=== PATIENT | female | born 1955 | race Caucasian/White ===

== ENCOUNTER 2022-03-24 11:19 | Inpatient (IN) | payer BC, OTHER ==
--- OUTSIDE RECORDS SUMMARY | 2022-03-24 11:22 | XMS REPORT | Continuity of Care Document ---
:1955 Author Organization [facility] t Address [address] [place] [address] Care Team Providers Name Role Phone Angelia Quiroz MD Primary Care Physician ANGELIA QUIROZ Attending Clinician Unavailable LUCHO ANGEL Attending Clinician Unavailable [id number] Attending Clinician Unavailable Angelia Quiroz MD Attending Clinician Payers Payer Name Policy Type Policy Number Effective Date Expiration Date S tomasz TRS BLUE ESSENTIALS 9 [id number] 2021 CAPITATED PRIM PLUS 00:00:00 BC[employer]-ESSENTIALS 2 [id number] 2021 00:00:00 Problems Condition Condition Condition Status Onset Resolution Last Treating Co mments Source Name Details Category Date Date Treatment Clinician Date No known No known Disease Starse sandy active active Seybold problems problems Allergies, Adverse Reactions, Alerts This patient has no known allergies or adverse reactions. Social History Social Habit Start Date Stop Date Quantity Comments Source Exposure to Not sure Roxanne vallejo SARS-CoV-2 (event) Tobacco use and 2021-02-25 2021-02-25 Smokeless tobacco Ramiro Joy exposure 00:00:00 00:00:00 non-user Sex [birth year] Roxanne fowler 00:00:00 00:00:00 Smoking Status Start Date Stop Date Source Never smoked tobacco Roxanne Jenkins old Medications Ordered Filled Start Stop Current Ordering Indication Dosage Frequency Signature Comments Components Source Medication Medication Date Date Medication? Clinician (SIG) Name Name Losartan Yes [id number] 25mg Take 1 Star y Potassium 2-01 tablet (25 Seyb old 25 MG oral 00:00: mg total) Tablet 00 by mouth daily Meloxicam Yes [id number] 7.5mg Take 1 Roxanne 7.5 MG oral 2 tablet Seybol d Tablet 00:00: (7.5 mg 00 total) by mouth daily Lisinopril 2020-08 40mg Take 1 Orquidea ey 40 MG oral 09-23 tablet (40 Se ybold Tablet 00:00: 00:00 mg total) 00 :00 by mouth daily Nitrofurant Yes [id number] 100mg Take 1 Roxanne oin Monohyd 7-15 capsule Seybo ld Macro 100 00:00: (100 mg MG oral 00 total) by Capsule mouth 2 times daily Vital Signs Vital Name Observation Time Observation Value Comments Source Systolic blood pressure 2021-09-15 16:46:00 119 mm[Hg] Roxanne Joy Diastolic blood 2021-09-15 16:46:00 74 mm[Hg] Estefanía Jenkinsphilip pressure Heart rate 2021-09-15 16:46:00 113 /min Roxanne birch Body temperature 2021-09-15 16:46:00 37.11 Jessi Orquidea niki Laureanoybold Respiratory rate 2021-09-15 16:46:00 17 /min Orquidea prince Seybold Body height 2021-09-15 16:46:00 152.4 cm Roxanne birch Body weight 2021-09-15 16:46:00 47.628 kg Roxanne birch BMI 2021-09-15 16:46:00 20.51 kg/m2 Roxanne birch Procedures This patient has no known procedures. Encounters Start End Encounter Admission Attending Care Care Encounter Source Date/Time Date/Time Type Type Clinicians Facility Department ID 2021-10-22 2021-10-22 Outpatient ROXANNE QUIROZ [id number] Roxanne 00:00:00 00:00:00 ANGELIA vallejo 2021-10-08 2021-10-08 Outpatient ROXANNE QUIROZ [id number] Roxanne 00:00:00 00:00:00 ANGELIA Seybol d 2021-10-08 2021-10-08 Outpatient ROXANNE ART [id number] Roxanne 00:00:00 00:00:00 Seybol d 2021-10-07 2021-10-07 Outpatient ROXANNE QUIROZ [id number] Roxanne 00:00:00 00:00:00 ANGELIA Seybol d 2021-10-06 2021-10-06 Outpatient ROXANNE QUIROZ [id number] Roxanne 00:00:00 00:00:00 ANGELIA Seybol d 2021-10-05 2021-10-05 Outpatient ROXANNE QUIROZ [id number] [place]anne 00:00:00 00:00:00 ANGELIA Seybol d 2021-10-02 2021-10-02 Outpatient ROXANNE QUIROZ [id number] Roxanne 00:00:00 00:00:00 ANGELIA Seybol d 2021-10-02 2021-10-02 Outpatient ROXANNE ART [id number] Roxanne 00:00:00 00:00:00 Seybol d 2021-09-24 2021-09-24 Outpatient ROXANNE ANGEL [id number] Roxanne 09:30:00 09:30:00 SHAJUAN Seybol d 2021-09-24 2021-09-24 Outpatient ROXANNE QUIROZ [id number] [place]anne 00:00:00 00:00:00 ANGELIA Seybol d 2021-09-23 2021-09-23 Outpatient ROXANNE QUIROZ [id number] Roxanne 00:00:00 00:00:00 ANGELIA Seybol d 2021-09-23 2021-09-23 Outpatient ROXANNE QUIROZ [id number] Roxanne 00:00:00 00:00:00 ANGELIA Seybol d 2021-09-22 2021-09-22 Outpatient ROXANNE QUIROZ [id number] Roxanne 00:00:00 00:00:00 ANGELIA Seybol d 2021-09-22 2021-09-22 Outpatient ROXANNE QUIROZ [id number] R[place]anne 00:00:00 00:00:00 ANGELIA Seybol d 2021-09-21 2021-09-21 Outpatient ROXANNE QUIROZ [id number] Roxanne 00:00:00 00:00:00 ANGELIA Seybol d 2021-09-18 2021-09-18 Outpatient ROXANNE QUIROZ [id number] Roxanne 00:00:00 00:00:00 ANGELIA Seybol d 2021-09-18 2021-09-18 Outpatient ROXANNE QUIROZ [id number] Roxanne 00:00:00 00:00:00 ANGELIA Seybol d 2021-09-17 2021-09-17 Outpatient ROXANNE QUIROZ [id number] [place]oxanne 00:00:00 00:00:00 ANGELIA Seybol d 2021-09-16 2021-09-16 Outpatient ROXANNE QUIROZ [id number] Roxanne 00:00:00 00:00:00 ANGELIA Seybol d 2021-09-16 2021-09-16 Outpatient ROXANNE QUIROZ [id number] Roxanne 00:00:00 00:00:00 ANGELIA Seybol d 2021-09-15 2021-09-15 Outpatient LAB90 ROXANNE ART [id number] Roxanne 11:45:00 11:45:00 Seybol d 2021-09-15 2021-09-15 Office Ed Quiroz [id number] Roxanne 11:00:00 11:30:00 Visit Angelia Owens [id number] Se smileyphilip Head [id number] 2021-07-23 2021-07-23 Outpatient ROXANNE QUIROZ [id number] Roxanne 00:00:00 00:00:00 ANGELIA Seybol d 2021-02-27 2021-02-27 Outpatient ROXANNE QUIROZ [id number] Roxanne 00:00:00 00:00:00 ANGELIA Seybol d 2021-02-25 2021-02-25 Outpatient LAB90 ROXANNE ART [id number] Roxanne 15:00:00 15:00:00 Kehinde vallejo 2021-02-25 2021-02-25 Outpatient ROXANNE QUIROZ [id number] Roxanne 13:30:00 13:30:00 ANGELIA vallejo Results This patient has no known results.
[2022-03-24 11:59] LABS: Absolute Lymphocytes (CBC) 0.5 K/uL (0.7-4.9); Hematocrit 48.4 % (36.0-45.0); Lymphocytes % 2.1 % (15.3-44.8); MPV 8.8 fL (7.6-11.3); RBC Red Blood Cell Count 4.65 M/uL (3.86-4.86)
[2022-03-24] MEDS ORDERED: NA CHLORIDE 0.9% 1,000 ML ONE ×2 (12:02→14:34)
[2022-03-24 12:17] LABS: Protime INR 1.07
[2022-03-24 13:18] LABS: Urine Blood Trace-intact (Negative); Urine Glucose Negative (Negative); Urine Protein Negative (Negative); Urine pH 5.5 (5.0-7.0)
[2022-03-24 13:32] LABS: Anisocytosis 1+; Blood Morphology Comment NOTED (NOT SEEN); Hypochromasia 1+; Platelet Estimate ADEQ; Poikilocytosis 1+
[2022-03-24 13:41] LABS: Urine Bacteria None Seen /HPF (<20); Urine RBC <5 /HPF (None Seen)
[2022-03-24 13:57] LABS: Albumin 2.8 g/dL (3.4-5.0); Bilirubin Total 2.3 mg/dL (0.2-1.0); Potassium 3.7 mmol/L (3.5-5.1); Protein, Total 5.3 g/dL (6.4-8.2); Troponin High Sensitivity 44.3 pg/mL (<58.9)
--- NOTE | 2022-03-24 14:14 | RAD REPORT ---
EXAM DESCRIPTION: RAD - Chest Single View - 03/24/2022 1:48 pm CLINICAL HISTORY: COUGH COMPARISON: Two view chest 09/16/2021 TECHNIQUE: AP portable chest image was obtained 03/24/2022 1:48 pm . FINDINGS: Extensive interstitial fibrotic lung disease is present matching comparison. Bullous weber es are seen in the upper lung marcos. No acute failure or volume overload. No large infiltrate or mas s lesions seen. More mild edema or infiltrate could be masked by severity chronic disease. Heart and vasculature are normal. No measurable pleural effusion and no pneumothorax. No acute bony abnormality seen. No acute aortic findings suspected. IMPRESSION: Extensive COPD findings similar to comparison. No acute process seen.
--- NOTE | 2022-03-24 14:33 | ER ---
Nurse's Notes [facility] Name: Sybil Meza Age: 66 yrs Sex: Female : 1955 Arrival Date: 03/24/2022 Time: 11:26 Bed 25 Private MD: Diagnosis: Other specified sepsis;Dehydration;Alcohol abuse Presentation: 03/24 11:33 Chief complaint: EMS states: pt slipped off her raised toilet chair last night and was tw2 unable to call a friend until this morning around 920. initially she was refusing transport when we arrived. denies LOC. states she was just unable to stand. she does drink 3-4 glasses of wine daily. lives alone. doesn't remember the name of her blood pressure medicine. Coronavirus screen: At this time, the client does not indicate any symptoms associated with coronavirus-19. Ebola Screen: Patient denies travel to an Ebola-affected area in the 21 days before illness onset. Initial Sepsis Screen: Does the patient meet any 2 criteria? HR > 90 bpm. No. Patient's initial sepsis screen is negative. Does the patient have a suspected source of infection? No. Patient's initial sepsis screen is negative. Risk Assessment: Do you want to hurt yourself or someone else? Patient reports no desire to harm self or others. Onset of symptoms was March 24, 2022. Care prior to arrival: None. 11:33 Method Of Arrival: EMS: [facility] tw2 11:33 Acuity: LISA 3 tw2 Triage Assessment: 11:38 General: Appears in no apparent distress. slender, unkempt, Behavior is cooperative, tw2 appropriate for age. General: pt has continuous tremors of upper extremities.. Pain: Denies pain. Neuro: Level of Consciousness is awake, alert, obeys commands, Oriented to person, place, time, situation. Cardiovascular: Capillary refill is > 3 seconds Patient's skin is warm and dry. Respiratory: Airway is patent Respiratory effort is even, unlabored, Respiratory pattern is regular, symmetrical. GI: Abdomen is round non-distended. Derm: Skin is fragile, is thin, with poor turgor Skin is bluish tinge Bruising that is dark purple, on right arm and left arm. Musculoskeletal: Range of motion: intact in all extremities, Kyphosis noted. Historical: - Allergies: 11:38 No Known Allergies; tw2 - Home Meds: 11:38 unknown bp med [Active]; tw2 - PMHx: 11:38 Hypertensive disorder; tw2 - Immunization history:: Client reports having NOT received the Covid vaccine. - Social history:: Smoking status: Patient denies any tobacco usage or history of. Patient uses alcohol, on a daily basis. "3-4 glasses of wine a night. that's not a lot" after provider discussing daily alcohol use amount.. Screenin:40 Abuse screen: Denies threats or abuse. Nutritional screening: No deficits noted. tw2 Tuberculosis screening: No symptoms or risk factors identified. Fall Risk Secondary diagnosis (15 points) impaired mobility. Assessment: 11:40 Reassessment: see triage assessment. tw2 11:41 Reassessment: pt has [facility] (caregiver helper) ph# [phone], per Nuha w/[facility] tw2 svcs her sister set it up because she does live alone and has been falling. someday she refused the care and sends them away before the 4 hours is up. she is non compliant with her medication. Nuha confirms "heavy daily drinking like a gallon of Fong wine at a time, almost 2 a week". 11:45 Reassessment: pts sister is ELOINA STORM ph#[phone] - pt is agreeable to share 2 medical information. sister will be flying from [place] here to see pt and potentially set up a move to be close to her. 12:45 Reassessment: Patient appears in no apparent distress at this time. No changes from tw2 previously documented assessment. Patient and/or family updated on plan of care and expected duration. Pain level reassessed. Patient is alert, oriented x 3, equal unlabored respirations, skin warm/dry/pink. 13:21 Reassessment: pt is on bedpan at this time for bm. pts call light in reach. pt will tw2 notify us once she is done. 14:30 Reassessment: Patient appears in no apparent distress at this time. No changes from tw2 previously documented assessment. Patient and/or family updated on plan of care and expected duration. Pain level reassessed. Patient is alert, oriented x 3, equal unlabored respirations, skin warm/dry/pink. 15:50 Reassessment: Patient appears in no apparent distress at this time. No changes from tw2 previously documented assessment. Patient and/or family updated on plan of care and expected duration. Pain level reassessed. Patient is alert, oriented x 3, equal unlabored respirations, skin warm/dry/pink. 16:50 Reassessment: Patient appears in no apparent distress at this time. No changes from tw2 previously documented assessment. Patient and/or family updated on plan of care and expected duration. Pain level reassessed. Patient is alert, oriented x 3, equal unlabored respirations, skin warm/dry/pink. 17:42 Reassessment: Patient appears in no apparent distress at this time. No changes from tw2 previously documented assessment. Patient and/or family updated on plan of care and expected duration. Pain level reassessed. Patient is alert, oriented x 3, equal unlabored respirations, skin warm/dry/pink. 18:37 Reassessment: Patient appears in no apparent distress at this time. No changes from tw2 previously documented assessment. Patient and/or family updated on plan of care and expected duration. Pain level reassessed. Patient is alert, oriented x 3, equal unlabored respirations, skin warm/dry/pink. Vital Signs: 11:33 BP 127 / 81; Pulse 140; Resp 20; Temp 97.9(TE); Pulse Ox 94% on R/A; Weight 56.7 kg tw2 (R); Height 5 ft. (152.40 cm) (R); Pain 0/10; 12:45 BP 125 / 61; Pulse 130; Resp 17; Pulse Ox 95% on R/A; tw2 13:30 BP 97 / 68; Pulse 128; Resp 14; Pulse Ox 95% on R/A; tw2 14:33 BP 115 / 83; Pulse 125; Resp 20; Pulse Ox 95% on R/A; tw2 15:49 BP 119 / 79; Pulse 128; Resp 20; Pulse Ox 95% on R/A; tw2 16:50 BP 103 / 71; Pulse 124; Resp 20; Pulse Ox 95% on R/A; tw2 17:42 BP 107 / 82; Pulse 121; Resp 24; Pulse Ox 96% on R/A; tw2 18:36 BP 104 / 84; Pulse 120; Resp 17; Pulse Ox 95% on R/A; tw2 11:33 Body Mass Index 24.41 (56.70 kg, 152.40 cm) tw2 11:33 will continue to monitor. pt appears to have poor circulation d/t the bluish tw2 discoloration noted to extremities. ED Course: 11:26 Patient arrived in ED. tw2 11:27 Claudia Sánchez MD is Attending Physician. sp3 11:32 Jovita Bray, VASILE is Primary Nurse. tw2 11:33 Bed in low position. Call light in reach. Side rails up X 1. fibrous wallboard inspector on. Pulse tw2 ox on. NIBP on. Warm blanket given. 11:37 Triage completed. tw2 11:40 Arm band placed on. tw2 11:48 Inserted saline lock: 22 gauge in right wrist, using aseptic technique. Blood collected.ap3 13:10 Straight cath inserted, using sterile technique, 18 Fr. Specimen obtained. Returned tw2 ellen urine. Patient tolerated well. Manish Rogers served as product test engineer. 13:20 UA MICROSCOPIC Sent. kc6 13:50 CXR XRAY In Process Unspecified. EDMS 14:32 Deidra Zeng MD is Hospitalizing Provider. sp3 14:32 Blood Culture Adult (2) Sent. tw2 14:32 SARS RAPID Sent. tw2 14:54 US Abdomen Limited In Process Unspecified. EDMS 15:02 Hip Left 2 View XRAY In Process Unspecified. EDMS 15:03 Lactate Sent. tw2 19:57 No provider procedures requiring assistance completed. Patient admitted, IV remains in ke1 place. Administered Medications: 11:59 Drug: NS 0.9% 1000 ml Route: IV; Rate: 1 bolus; Site: right wrist; ap3 13:00 Follow up: Response: No adverse reaction; IV Status: Completed infusion; IV Intake: tw2 1000ml 14:30 Drug: NS 0.9% 1000 ml Route: IV; Rate: 1 bolus; Site: right wrist; tw2 16:00 Follow up: Response: No adverse reaction; IV Status: Completed infusion; IV Intake: tw2 1000ml 15:03 Drug: Cefepime 2 grams Route: IVPB; Rate: 200 ml/hr; Infused Over: 30 mins; Site: right tw2 wrist; 15:33 Follow up: Response: No adverse reaction; IV Status: Completed infusion; IV Intake: tw2 200ml Medication: 11:40 VIS not applicable for this client. tw2 Intake: 13:00 IV: 1000ml; Total: 1000ml. tw2 15:33 IV: 200ml; Total: 1200ml. tw2 16:00 IV: 1000ml; Total: 2200ml. tw2 Outcome: 14:32 Decision to Hospitalize by Provider. sp3 19:57 Admitted to Med/surg accompanied by tech. ke1 19:57 Condition: stable 19:57 Instructed on the need for admit. 20:27 Patient left the ED. bb Signatures: Dispatcher [employer] EDMS Mandy Fernandez RN RN bb Jovita Bray RN RN tw2 Raquel Borja RN RN [email or web address] Claudia Sánchez MD MD sp3 Herminia Parker RN RN ke1 Sue Govea 6
--- NOTE | 2022-03-24 14:33 | EDPHYS ---
Physician Documentation [facility] Name: Sybil Meza Age: 66 yrs Sex: Female : 1955 Arrival Date: 03/24/2022 Time: 11:26 Bed 25 Private MD: ED Physician Claudia Sánchez HPI: 03/24 12:07 This 66 yrs old Female presents to ER via EMS with complaints of Fall / Checked out. sp3 12:07 66 female with hypertension, daily alcohol use, who presents via EMS for recurrent sp3 falls. Patient fell last night and ended up laying on the ground all day and was found by a friend next-door. Afterwards EMS was activated who initially came and she refused to come to the hospital and then later she reluctantly agreed. Patient has no complaints other than being "uneasy on her feet" and states that she is not an alcoholic but she simply has 4 to 5 glasses of wine every night. She denies headache, neck pain, chest pain, shortness of breath, abdominal pain, nausea, vomiting, diarrhea, fever, URI symptoms, travel history, known COVID-19 contacts, or any other ROS at this time.. Historical: - Allergies: 11:38 No Known Allergies; tw2 - Home Meds: 11:38 unknown bp med [Active]; tw2 - PMHx: 11:38 Hypertensive disorder; tw2 - Immunization history:: Client reports having NOT received the Covid vaccine. - Social history:: Smoking status: Patient denies any tobacco usage or history of. Patient uses alcohol, on a daily basis. "3-4 glasses of wine a night. that's not a lot" after provider discussing daily alcohol use amount.. ROS: 12:10 Constitutional: Negative for fever, chills, and weight loss, Eyes: Negative for injury, sp3 pain, redness, and discharge, ENT: Negative for injury, pain, and discharge, Neck: Negative for injury, pain, and swelling, Cardiovascular: Negative for chest pain, palpitations, and edema, Respiratory: Negative for shortness of breath, cough, wheezing, and pleuritic chest pain, Abdomen/GI: Negative for abdominal pain, nausea, vomiting, diarrhea, and constipation, Back: Negative for injury and pain, MS/Extremity: Negative for injury and deformity, Skin: Negative for injury, rash, and discoloration, Neuro: Negative for headache, weakness, numbness, tingling, and seizure, Psych: Negative for depression, anxiety, suicide ideation, homicidal ideation, and hallucinations, Allergy/Immunology: Negative for hives, rash, and allergies, Endocrine: Negative for neck swelling, polydipsia, polyuria, polyphagia, and marked weight changes, Hematologic/Lymphatic: Negative for swollen nodes, abnormal bleeding, and unusual bruising. 12:10 All other systems are negative. Exam: 12:10 Constitutional: This is a well developed, well nourished patient who is awake, alert, sp3 and in no acute distress. Head/Face: Normocephalic, atraumatic. Eyes: Pupils equal round and reactive to light, extra-ocular motions intact. Lids and lashes normal. Conjunctiva and sclera are non-icteric and not injected. Cornea within normal limits. Periorbital areas with no swelling, redness, or edema. ENT: Nares patent. No nasal discharge, no septal abnormalities noted. External auditory canals are clear. Oropharynx with no redness, swelling, or masses, exudates, or evidence of obstruction, uvula midline. Mucous membranes moist. Neck: Trachea midline, no thyromegaly or masses palpated, and no cervical lymphadenopathy. Supple, full range of motion without nuchal rigidity, or vertebral point tenderness. No Meningismus. Chest/axilla: Normal chest wall appearance and motion. Nontender with no deformity. No lesions are appreciated. Respiratory: Lungs have equal breath sounds bilaterally, clear to auscultation and percussion. No rales, rhonchi or wheezes noted. No increased work of breathing, no retractions or nasal flaring. Abdomen/GI: Soft, non-tender, with normal bowel sounds. No distension or tympany. No guarding or rebound. No evidence of tenderness throughout. Back: No spinal tenderness. No costovertebral tenderness. Full range of motion. Skin: Warm, dry with normal turgor. Normal color with no rashes, no lesions, and no evidence of cellulitis. MS/ Extremity: Pulses equal, no cyanosis. Neurovascular intact. Full, normal range of motion. Neuro: Awake and alert, GCS 15, oriented to person, place, time, and situation. Cranial nerves II-XII grossly intact. Motor strength 5/5 in all extremities. Sensory grossly intact. Cerebellar exam normal. Normal gait. Psych: Awake, alert, with orientation to person, place and time. Behavior, mood, and affect are within normal limits. 12:10 Cardiovascular: Rate: tachycardic, Pulses: Vital Signs: 11:33 BP 127 / 81; Pulse 140; Resp 20; Temp 97.9(TE); Pulse Ox 94% on R/A; Weight 56.7 kg tw2 (R); Height 5 ft. (152.40 cm) (R); Pain 0/10; 12:45 BP 125 / 61; Pulse 130; Resp 17; Pulse Ox 95% on R/A; tw2 13:30 BP 97 / 68; Pulse 128; Resp 14; Pulse Ox 95% on R/A; tw2 14:33 BP 115 / 83; Pulse 125; Resp 20; Pulse Ox 95% on R/A; tw2 15:49 BP 119 / 79; Pulse 128; Resp 20; Pulse Ox 95% on R/A; tw2 16:50 BP 103 / 71; Pulse 124; Resp 20; Pulse Ox 95% on R/A; tw2 17:42 BP 107 / 82; Pulse 121; Resp 24; Pulse Ox 96% on R/A; tw2 18:36 BP 104 / 84; Pulse 120; Resp 17; Pulse Ox 95% on R/A; tw2 11:33 Body Mass Index 24.41 (56.70 kg, 152.40 cm) tw2 11:33 will continue to monitor. pt appears to have poor circulation d/t the bluish tw2 discoloration noted to extremities. MDM: 11:31 Patient medically screened. sp3 12:11 Data reviewed: vital signs, nurses notes, EMS record. ED course: 66-year-old female sp3 with no real chief complaint but significantly tachycardic in the 140s. Will obtain routine lab work and IV fluids with disposition TBD based on patient course.. 14:30 ED course: Patient with extensive alcoholism after further history from family. Patient sp3 is currently septic from unknown source possibly pulmonary. Urine is clean. Blood cultures are pending. Cefepime has been given IV. Insulin level 09/04/2019 range. Second liter normal saline is being administered. Blood pressure is stable. Patient is alert and oriented with no complaints at this time. Will admit to telemetry floor under Dr. Zeng.. 18:58 ED course: Left-sided superior and inferior pubic rami fractures noted. This was sp3 communicated to the inpatient team and orthopedics will be consulted. There was no hip fracture.. 03/24 11:32 Order name: CBC with Diff; Complete Time: 14:01 sp3 03/24 11:32 Order name: CMP; Complete Time: 14:01 sp3 03/24 11:32 Order name: Lipase; Complete Time: 14:01 sp3 03/24 11:32 Order name: PT-INR; Complete Time: 12:53 sp3 03/24 11:32 Order name: Troponin High Sensitivity; Complete Time: 14:01 sp3 03/24 11:32 Order name: ETOH Level; Complete Time: 14:01 sp3 03/24 12:12 Order name: CK; Complete Time: 18:56 sp3 03/24 12:15 Order name: Manual Differential; Complete Time: 14:01 EDMS 03/24 12:56 Order name: UA MICROSCOPIC; Complete Time: 14:01 sp3 03/24 12:56 Order name: Blood Culture Adult (2) sp3 03/24 12:56 Order name: SARS RAPID; Complete Time: 18:56 sp3 03/24 13:19 Order name: Urine Dipstick-Ancillary; Complete Time: 13:29 EDMS 03/24 14:35 Order name: Lactate; Complete Time: 18:56 sp3 03/24 15:41 Order name: CBC with Automated Diff EDMS 03/24 12:56 Order name: CXR XRAY; Complete Time: 14:29 sp3 03/24 13:39 Order name: Hip Left 2 View XRAY; Complete Time: 18:56 sp3 03/24 14:35 Order name: US Abdomen Limited; Complete Time: 18:56 sp3 03/24 14:41 Order name: Chest Abdomen Pelvis W Cont EDMS 03/24 15:41 Order name: CONS Physician Consult EDMS 03/24 15:41 Order name: CBC with Automated Diff EDMS 03/24 15:41 Order name: Comprehensive Metabolic Panel EDMS 03/24 15:41 Order name: Comprehensive Metabolic Panel EDMS 03/24 15:41 Order name: Protime (+INR) EDMS 03/24 15:41 Order name: Protime (+INR) EDMS 03/24 15:41 Order name: PTT, Activated Partial Thromb EDMS 03/24 15:41 Order name: PTT, Activated Partial Thromb EDMS 03/24 15:41 Order name: Ammonia EDMS 03/24 11:32 Order name: IV Saline Lock; Complete Time: 11:48 sp3 03/24 11:32 Order name: Labs collected and sent; Complete Time: 11:48 sp3 03/24 11:32 Order name: EKG - Nurse/Tech; Complete Time: 11:48 sp3 03/24 12:03 Order name: Labs - recollect needed: recollect green top; Complete Time: 12:27 bd 03/24 12:39 Order name: Labs - recollect needed: recollect c7 again please; Complete Time: 12:59 bd 03/24 12:56 Order name: Urine Dipstick-Ancillary (obtain specimen); Complete Time: 13:20 sp3 03/24 13:18 Order name: Straight Cath - Urine; Complete Time: 13:18 tw2 03/24 15:41 Order name: CONS Physician Consult [facility] 03/24 15:41 Order name: [facility] EDCT Administered Medications: 11:59 Drug: NS 0.9% 1000 ml Route: IV; Rate: 1 bolus; Site: right wrist; ap3 13:00 Follow up: Response: No adverse reaction; IV Status: Completed infusion; IV Intake: tw2 1000ml 14:30 Drug: NS 0.9% 1000 ml Route: IV; Rate: 1 bolus; Site: right wrist; tw2 16:00 Follow up: Response: No adverse reaction; IV Status: Completed infusion; IV Intake: tw2 1000ml 15:03 Drug: Cefepime 2 grams Route: IVPB; Rate: 200 ml/hr; Infused Over: 30 mins; Site: right tw2 wrist; 15:33 Follow up: Response: No adverse reaction; IV Status: Completed infusion; IV Intake: tw2 200ml Disposition Summary: 03/24/22 14:32 Hospitalization Ordered Hospitalization Status: Inpatient Admission sp3 Provider: Deidra Zeng sp3 Condition: Fair sp3 Problem: an acute exacerbation sp3 Symptoms: have worsened sp3 Bed/Room Type: Standard sp3 Location: Telemetry/MedSurg (Inpatient)(03/24/22 18:33) Room Assignment: [facility] [place](03/24/22 19:39) 5 Diagnosis - Other specified sepsis sp3 - Dehydration sp3 - Alcohol abuse sp3 Forms: - Medication Reconciliation Form sp3 - SBAR form sp3 Signatures: Dispatcher [employer] EDMS Chloé Graf Diana RN RN dw Jovita Bray RN RN tw2 Raquel Borja RN RN ap3 Madhavi Fowler RN RN eb1 Claudia Sánchez MD MD sp3 Nisha Lee RN RN sm5 Corrections: (The following items were deleted from the chart) 17:59 14:32 Telemetry/MedSurg (Inpatient) sp3 bd 17:59 14:32 sp3 bd 18:33 17:59 [facility] ER HOLD bd dw 18:33 17:59 ERHOLD- bd dw 18:34 18:33 201 dw bd 19:39 18:34 220 bd eb1 19:39 19:39 201 eb1 5
[2022-03-24] MEDS ORDERED: CEFEPIME 2 GM VIAL ONE (14:34)
[2022-03-24] MEDS ORDERED: NA CHLORIDE 0.9% 250 ML ONE (14:34)
[2022-03-24 14:46] LABS: SARS-CoV-2 Antigen Rapid Res Negative (Negative)
--- NOTE | 2022-03-24 15:09 | RAD REPORT ---
EXAM DESCRIPTION: US - Abdomen Exam Limited - 03/24/2022 2:52 pm CLINICAL HISTORY: ABD PAIN COMPARISON: Abdomen Exam Complete dated 10/15/2021 FINDINGS: Several small sub centimeter sized mobile gallstones are present. No measurable quantity o f sludge. There is no wall thickening or pericholecystic fluid. Common bile duct is 9 mm which is greater than normal range. Intrahepatic ducts do not appear dilated . A duct stone is not visualized. IMPRESSION: Several small sub centimeter mobile gallstones without other gallbladder abnormality. Dilation of the common bile duct to 9 mm with no duct stone identifiable.
--- NOTE | 2022-03-24 15:19 | RAD REPORT ---
EXAM DESCRIPTION: RAD - Hip Left 2 View - 03/24/2022 2:56 pm CLINICAL HISTORY: PAIN COMPARISON: Hip Left 2 View dated 09/16/2021 FINDINGS: AP and frogleg views of the left hip were obtained. No dislocation present and no acute fracture changes are present. Patient has very severe degenerativ e change at the hip joint. There is effacement of the joint space superiorly. Femoral head is flatten ed along the superior margin with prominent subcortical cystic and sclerotic change identifiable. The re is spurring of the acetabular rim. No pathologic bone process seen. No periarticular abnormality. The femoral neck and intertrochanteric regions are unremarkable. The left superior pubic ramus at the pubic symphysis appears fractured. Fracture of the inferior pubi c ramus is not confirmed. SI joint degenerative changes are present. No soft tissue abnormality. 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 Fracture of the left superior pubic ramus at the pubic symphysis.
[2022-03-24] MEDS ORDERED: VANCOMYCIN 1 GM in NA CHLORIDE 0.9% 250 ML IVPB SCH ×2 (17:00→22:00)
[2022-03-24] MEDS ORDERED: PIPER TAZO 3.375 GM in NA CHLORIDE 0.9% 100 ML IV SCH (17:00)
[2022-03-24] MEDS: ACETAMINOPHEN 500 MG TAB PO PRN (21:57)
[2022-03-24] MEDS: NA CHLORIDE 0.9% 1,000 ML IV SCH (21:59)
[2022-03-24] MEDS ORDERED: PIPER TAZO 3.375 GM in NA CHLORIDE 0.9% 100 ML IV ONE (22:00)
[2022-03-24 22:32] VITALS: BMI 24.4
--- NOTE | 2022-03-25 01:44 | P.HP ---
Certification for Inpatient Patient admitted to: Inpatient With expected LOS: >2 Midnights Patient will require the following post-hospital care: None Practitioner: I am a practitioner with admitting privileges, knowledge of patient current condition, hospital course, and medical plan of care. Services: Services provided to patient in accordance with Admission requirements found in Title 42 Section 412.3 of the Code of Federal Regulations Patient History Date of Service: 03/24/22 Reason for admission: Fever; sepsis; leukocytosis History of Present Illness: Patient is a 66-year-old female came to the hospital with fever and she appeared to be septic. She also has a history of alcohol abuse and she had elevated bilirubin. She has been drinking for a long time. She has been getting confused. The family decided to bring her into the hospital for further evaluation. She has a sister from [place] who has been staying with her and wanted her to come and get evaluated. In the emergency room she had CT imaging that revealed biliary duct dilatation. She was seen by general surgery who is recommending gastroenterology consultation. We will do an MRCP for further evaluation after speaking to gastroenterology. Allergies No Known Allergies Allergy (Unverified 03/24/22 16:13) Home Medications: Losartan Potassium [Cozaar] 25 mg PO DAILY 03/26/22 - Past Medical/Surgical History Has patient received pneumonia vaccine in the past: Yes Diabetic: No -: hypertension -: Alcohol abuse Past Surgical History: Patient denies surgical history - Family History Father Medical History: Heart disease - Social History Smoking Status: Former smoker Alcohol use: Yes CD- Drugs: No Caffeine use: Yes Place of Residence: Home Review of Systems 10-point ROS is otherwise unremarkable Physical Examination - Vital Signs Temperature: 97.9 F Blood Pressure: 104/84 Pulse: 120 Respirations: 17 Pulse Ox (%): 96 - Physical Exam General: Alert, In no apparent distress, Confused HEENT: Atraumatic, PERRLA, Mucous membr. moist/pink, EOMI, Sclerae nonicteric Neck: Supple, 2+ carotid pulse no bruit, No LAD, Without JVD or thyroid abnormality Respiratory: Clear to auscultation bilaterally, Normal air movement Cardiovascular: Regular rate/rhythm, Normal S1 S2, No murmurs Gastrointestinal: Hypoactive, Non-distended, No rebound, No guarding, Tenderness Musculoskeletal: No clubbing, No swelling, Tenderness Integumentary: No rashes Neurological: Sensation intact, Cranial nerves 3-12 intact, Normal affect, Abnormal strength Lymphatics: No axilla or inguinal lymphadenopathy - Studies Laboratory Data (last 24 hrs) 03/24/22 12:54: Sodium 138, Potassium 3.7, BUN 8, Creatinine 0.99, Glucose 109 H, Total Bilirubin 2.3 H, AST 80 H, ALT 46, Alkaline Phosphatase 148 H, Lipase 43 L 03/24/22 11:44: PT 11.8, INR 1.07 03/24/22 11:44: WBC 23.1 H*, Hgb 16.3 H, Hct 48.4 H, Plt Count 177 Assessment & Plan - Problems (Diagnosis) (1) Fever Current Visit: Yes Status: Acute (2) Leukocytosis Current Visit: Yes Status: Acute (3) Choledocholithiasis Current Visit: Yes Status: Acute (4) Acute cholecystitis Current Visit: Yes Status: Acute (5) Common bile duct dilation Current Visit: Yes Status: Acute (6) Hip pain Current Visit: Yes Status: Acute (7) Korsakoff's psychosis, alcohol related Current Visit: Yes Status: Acute - Plan -IV hydration -IV antibiotics -MRCP -pain controlled -Monitor for DTs -GI consultation -surgery consultation -CT abdomen pelvis pending Discharge Plan: Home Plan to discharge in: Greater than 2 days - Advance Directives Does patient have a Living Will: No Does patient have a Durable POA for Healthcare: No - Code Status/Comfort Care Code Status Assessed: Yes Code Status: Full Code Critical Care: No Time Spent Managing PTS Care (In Minutes): 45
[2022-03-25] MEDS: NA CHLORIDE 0.9% 1,000 ML IV SCH ×3 (05:27→22:00)
[2022-03-25] MEDS ORDERED: Levofloxacin500mg IV 500 MG/100 ML BAG IV SCH (06:00)
[2022-03-25 06:32] LABS: Protime INR 1.12
[2022-03-25 06:44] LABS: Albumin 2.4 g/dL (3.4-5.0); Bilirubin Total 1.6 mg/dL (0.2-1.0); Potassium 3.8 mmol/L (3.5-5.1); Protein, Total 4.7 g/dL (6.4-8.2)
[2022-03-25 06:47] LABS: Absolute Lymphocytes (CBC) 1.1 K/uL (0.7-4.9); Hematocrit 38.5 % (36.0-45.0); Lymphocytes % 11.4 % (15.3-44.8); MCV 103.8 fL (80-100); MPV 8.8 fL (7.6-11.3); RBC Red Blood Cell Count 3.71 M/uL (3.86-4.86)
[2022-03-25] MEDS: MORPHINE 2 MG/ML SYR IV PRN ×3 (08:01→21:08)
[2022-03-25] MEDS: PIPER TAZO 3.375 GM in NA CHLORIDE 0.9% 100 ML IV SCH ×2 (08:24→16:58)
--- NOTE | 2022-03-25 08:59 | RAD REPORT ---
EXAM DESCRIPTION: CTChest Abdomen Pelvis W Cont - 03/25/2022 8:42 am CLINICAL HISTORY: sepsis unknown etiology; elevated bili; WBC COMPARISON: Abdomen Exam Limited dated 03/24/2022; Lumbar Spine 3 Views dated 09/16/2021 TECHNIQUE: CT of the chest, abdomen, and pelvis was performed. All CT scans are performed using dose optimization technique as appropriate and may include automated exposure control or mA/KV adjustment according to patient size. FINDINGS: Thorax: Chest Wall: No abnormal mass Lungs: Atelectasis as a result of the effusions. Emphysema. Pleura: Small pleural effusions. . Genia/Mediastinum: No lymphadenopathy. Aorta/Pulmonary Arteries: Unremarkable Heart: Normal size. Multi-vessel coronary artery disease. Abdomen/Pelvis: Liver: Hepatic steatosis Biliary: Cholelithiasis. Dilated common bile duct measuring 9 millimeters. Stomach: No significant focal abnormality. Duodenum: No significant focal abnormality. Pancreas: No significant abnormality. Spleen: No significant abnormality. Adrenal: No suspicious lesions. Kidney/ureter: No hydronephrosis. No renal calculi. Retroperitoneum: Small fluid collection along the right iliacus muscle measures 2.8 cm in likely orig inates from the iliopsoas bursa. Vascular: No aneurysm. Atherosclerosis. Bowel: Diverticulosis without diverticulitis.. Peritoneum: No ascites or free air. Bladder: Grossly unremarkable. Reproductive: No adnexal masses. Bones: No acute fracture. L1 and L3 kyphoplasty changes. Remote L2 compression fracture. Advanced deg enerative changes are present at the left hip. Other: n/a IMPRESSION: No acute findings within the chest, abdomen, or pelvis. Cholelithiasis with extrahepatic biliary duct dilatation but no CT evidence of acute cholecystitis. An MRCP is pending.
--- NOTE | 2022-03-25 09:33 | RAD REPORT ---
EXAM DESCRIPTION: MRI - Cholangiogram - 03/25/2022 9:03 am CLINICAL HISTORY: choledocholithiasis COMPARISON: Abdomen Exam Limited dated 03/24/2022 FINDINGS: Three-dimensional MRCP was performed using maximum intensity projection reconstruction on the same work station. Mild intrahepatic biliary ductal dilatation. The common bile duct is dilated measuring approximately 8 millimeters. Negative for choledocholithiasis. No obstructing mass is seen. The pancreatic duct is not pathologically dilated. Cholelithiasis is present. Limited T2 sequences through the abdomen demonstrates no bulky adenopathy, significant free fluid or abscess. Small pleural effusions. IMPRESSION: Cholelithiasis and both intra and extrahepatic biliary ductal dilatation but no evidence of choledocholithiasis, stricture, or mass.
[2022-03-25] MEDS: ONDANSETRON 4 MG/2 ML VIAL IV PRN ×2 (09:59→21:08)
[2022-03-25] MEDS: MULTIVITAMINS INJ 10 ML, THIAMINE HCL 100 MG, FOLIC ACID 1 MG in NA CHLORIDE 0.9% 1,000 ML IV SCH (13:12)
[2022-03-25] MEDS: ACETAMINOPHEN 500 MG TAB PO PRN (17:05)
--- NOTE | 2022-03-25 20:41 | P.CNS ---
Chief Complaint: fever; sepsis; leukocytosis History of Present Illness: willem is a 66-year-old female came to the hospital with fever and she appeared to be septic. She also has a history of alcohol abuse and she had elevated bilirubin. AST was also elevated. Orthopedics were consulted for a left superior pubic ramus fracture and chronic hip AVN. patient has no hip or pelvis pain. Allergies No Known Allergies Allergy (Unverified 03/24/22 16:13) Home medications list reviewed: Yes Home Medications: NK [No Home Meds] 03/25/22 - Past Medical/Surgical History Diabetic: No -: hypertension - Family History Father Medical History: Heart disease - Social History Alcohol use: Yes CD- Drugs: No Caffeine use: Yes Place of Residence: Home Review of Systems 10-point ROS is otherwise unremarkable Physical Examination Temp Pulse Resp BP Pulse Ox 97.3 F 88 18 124/77 90 L 03/25/22 15:58 03/25/22 15:58 03/25/22 15:58 03/25/22 15:58 03/25/22 15:58 General: In no apparent distress, Oriented x3 HEENT: Atraumatic Neck: Supple Respiratory: Normal air movement Cardiovascular: No edema Musculoskeletal: Other (no hip or pelvic pain) Imagings Data: initial xrays sugested pubic ramus fracture, the follow up pelvic CT showed no fracture - Problems (1) Hip pain Current Visit: Yes Status: Acute Plan: Orthopedic surgery is not necessary, patient is asymptomatic.
[2022-03-26] MEDS: PIPER TAZO 3.375 GM in NA CHLORIDE 0.9% 100 ML IV SCH ×3 (00:26→16:44)
[2022-03-26] MEDS: NA CHLORIDE 0.9% 1,000 ML IV SCH ×2 (05:07→16:45)
[2022-03-26] MEDS ORDERED: Levofloxacin 250mg IV 250 MG/50 ML BAG IV SCH (06:00)
[2022-03-26] MEDS: MULTIVITAMINS INJ 10 ML, THIAMINE HCL 100 MG, FOLIC ACID 1 MG in NA CHLORIDE 0.9% 1,000 ML IV SCH (09:26)
[2022-03-26] MEDS: MORPHINE 2 MG/ML SYR IV PRN ×2 (14:48→23:46)
--- NOTE | 2022-03-26 17:07 | P.PN ---
Date of Service: 03/26/22 Subjective Subjective: Pt improving with no new complaints; Review of Systems 10-point ROS is otherwise unremarkable Physical Examination - Vital Signs reviewed - Physical Exam General: Alert, In no apparent distress, Oriented x3 Respiratory: Clear to auscultation bilaterally, Normal air movement Cardiovascular: Regular rate/rhythm, Normal S1 S2 Gastrointestinal: Hypoactive, No tenderness, mildly distended Neurological: no focal deficits Assessment & Plan - Problems (Diagnosis) (1) Fever Current Visit: Yes Status: Acute (2) Leukocytosis Current Visit: Yes Status: Acute (3) Choledocholithiasis Current Visit: Yes Status: Acute (4) Biliary ductal dilatation Current Visit: Yes Status: Acute (5) Wernicke encephalopathy Current Visit: Yes Status: Acute (6) Pelvic fracture Current Visit: Yes Status: Acute - Plan Continue with POC as mentioned -IV hydration -IV antibiotics -MRCP pending -pain controlled -Monitor for DTs -GI consultation appreciated -surgery consultation appreciated -CT abdomen pelvis - Advance Directives Does patient have a Living Will: No Does patient have a Durable POA for Healthcare: No
--- NOTE | 2022-03-26 17:07 | P.PN ---
Subjective Date of Service: 03/25/22 Subjective: No new changes, No C/O voiced, Improving Review of Systems 10-point ROS is otherwise unremarkable Physical Examination - Vital Signs Temperature: 97.1 F Blood Pressure: 140/83 Pulse: 122 Respirations: 16 Pulse Ox (%): 96 - Physical Exam General: Alert, In no apparent distress, Oriented x3 Respiratory: Clear to auscultation bilaterally, Normal air movement Cardiovascular: Regular rate/rhythm, Normal S1 S2 Gastrointestinal: Hypoactive, No tenderness, Distended Musculoskeletal: No tenderness Integumentary: No rashes Neurological: Normal speech, Normal tone, Normal affect Lymphatics: No axilla or inguinal lymphadenopathy - Studies Medications List Reviewed: Yes Assessment & Plan - Problems (Diagnosis) (1) Fever Current Visit: Yes Status: Acute (2) Leukocytosis Current Visit: Yes Status: Acute (3) Choledocholithiasis Current Visit: Yes Status: Acute - Plan Continue with POC as mentioned -aggressive IV hydration -IV antibiotics -MRCP pending -pain controlled -Monitor for DTs -GI consultation appreciated -surgery consultation -CT abdomen pelvis pending - Advance Directives Does patient have a Living Will: No Does patient have a Durable POA for Healthcare: No
[2022-03-27] MEDS: PIPER TAZO 3.375 GM in NA CHLORIDE 0.9% 100 ML IV SCH ×3 (00:31→17:13)
[2022-03-27] MEDS: NA CHLORIDE 0.9% 1,000 ML IV SCH ×2 (04:00→09:38)
[2022-03-27] MEDS ORDERED: Levofloxacin 750mg IV 750 MG/150 ML BAG IV SCH (09:00)
[2022-03-27] MEDS: MULTIVITAMINS INJ 10 ML, THIAMINE HCL 100 MG, FOLIC ACID 1 MG in NA CHLORIDE 0.9% 1,000 ML IV SCH (09:37)
[2022-03-27] MEDS: MORPHINE 2 MG/ML SYR IV PRN (09:37)
[2022-03-27] MEDS: ONDANSETRON 4 MG/2 ML VIAL IV PRN (09:39)
--- NOTE | 2022-03-27 11:45 | P.PN ---
Subjective Date of Service: 03/27/22 Chief Complaint: fever; sepsis; leukocytosis Subjective: Improving no pain today @ rest Physical Examination - Vital Signs Temperature: 97.7 F Blood Pressure: 122/81 Pulse: 122 Respirations: 18 Pulse Ox (%): 91 - Physical Exam General: Alert, In no apparent distress, Cooperative Gastrointestinal: Soft and benign, Non-distended, No ascites, No tenderness, No masses, No rebound, No guarding - Studies Medications List Reviewed: Yes Assessment And Plan - Current Problems (Diagnosis) (1) Common bile duct dilation Current Visit: Yes Status: Acute Plan: - Await GI recommendations - continue medical management - patient remains asymptomatic with respect to abdominal pain - continue supportive care and PT for pubic fracture - serial exams - patient refuses to consider cholecystectomy @ this time.
--- NOTE | 2022-03-27 11:45 | P.PN ---
Subjective Date of Service: 03/26/22 Chief Complaint: fever; sepsis; leukocytosis Subjective: Improving (Patient continues to deny any abdominal pain) Physical Examination - Vital Signs Temperature: 97.7 F Blood Pressure: 122/81 Pulse: 122 Respirations: 18 Pulse Ox (%): 91 - Physical Exam General: Alert, In no apparent distress, Cooperative Gastrointestinal: Soft and benign, Non-distended, No ascites, No tenderness, No masses, No rebound, No guarding - Studies Medications List Reviewed: Yes Assessment And Plan - Current Problems (Diagnosis) (1) Common bile duct dilation Current Visit: Yes Status: Acute Plan: - Await GI recommendations - continue medical management - patient remains asymptomatic with respect to abdominal pain - continue supportive care and PT for pubic fracture - serial exams - patient refuses to consider cholecystectomy @ this time.
[2022-03-27] MEDS ORDERED: ONDANSETRON 4 MG/2 ML VIAL IV STA (14:40)
[2022-03-27] MEDS ORDERED: METOPROLOL TARTRATE 5 MG/5 ML INJ IV STA (14:41)
[2022-03-27] MEDS ORDERED: chlordiazePOXIDE HCl 5 MG CAP PO ONE (15:00)
--- NOTE | 2022-03-27 16:03 | CON ---
Date of Consultation: 03/25/2022 Reason For Consultation: Possible cholecystitis. Brief History Of Present Illness: The patient is a 66-year-old female with a history of al cohol abuse/cirrhosis who came to the ER via EMS after a fall. She fell the day prior to her admissi on on 03/24 and ended up landing on the ground most of the day and was found by a friend afterwards. EMS was activated and they came and brought the patient to the hospital after she initially refused transportation. She states she drinks 4-5 glasses of wine at night but admits later to me that more likely a bottle or 2 per night of wine. She only drinks wine she states. She has noted some occasio nal confusion and dizziness at times with an unsteady gait at times. She denies any abdominal pain b ut does complain of pelvic pain, but no abdominal pain. No nausea. No vomiting. No postprandial sy mptoms. Past Medical History: Hypertension, alcohol abuse. Past Surgical History: Negative. Medications: She takes a blood pressure medication she cannot recall. Allergies: NO KNOWN DRUG ALLERGIES. Social History: As above. She drinks 1-2 bottles of wine a day. Smoking; she states she has smoked before in the past but denies current usage. She was a pack per day smoker for many years. She den ies any recreational drug use. Review of Systems: Ten-point review of systems other than HPI, she denies. Physical Examination: At the time of my examination, General: She is awake, alert, oriented. Psychiatric: She is appropriate, conversive, although her short-term memory is not very good. Her m edium and long-term memory appear to be for the most part intact, but short-term memory is impaired. HEENT: She is otherwise normocephalic. Her sclerae are anicteric. Mucous membranes are moist. Nicholas pharynx clear. Neck: Supple without JVD. Chest: Normal expansion and excursion Cardiovascular: Regular rate and rhythm. Pulmonary: Clear to auscultation bilaterally. Abdomen: Soft, nontender, nondistended. No rebound. No guarding. No focal peritonitis. Howell si gn negative. Pelvis: Tender on palpation, particularly to the left pubic area. Extremities: No clubbing, cyanosis, edema. Skin: Warm and dry. Laboratory Data: Revealed a white blood cell count of 10.0, hemoglobin 13.2, hematocrit 38.5, platel et count was 109, neutrophils were 81%. Her PT 12.4, INR 1.12, PTT is 27.9. Sodium 138, potassium 3 .8, chloride 109, carbon dioxide 22, BUN 9, creatinine 0.54, glucose 87. Lactic acid 1.0, total bili quezada is 1.6, AST 64, ALT 39, alkaline phosphatase is 110. She had imaging performed, which included a hip x-ray officially read as severe AVN of the hip joint. Degenerative changes on the left, not s ubstantially different from September 2021. Fracture of the left superior pubic ramus at the pubic sy mphysis. She additionally had a chest x-ray performed on 03/24 officially read as extensive COPD fin dings similar to comparison. No acute process seen. She had an abdominal ultrasound as well which s howed several subcentimeter mobile gallstones without other gallbladder abnormality dilatation of the common bile duct to 9 mm. No duct stone identified. There is no wall thickening or pericholecystic fluid. She had an MRCP performed as well which was officially read as cholelithiasis and both intra and extrahepatic biliary ductal dilatation, but no evidence of choledocholithiasis, stricture or mas s. She had a CT of the chest, abdomen, and pelvis as well which was officially read as no acute find ings within in the chest, abdomen, and pelvis. Cholelithiasis with extrahepatic bile duct dilatation , but no CT evidence of acute cholecystitis. Assessment And Plan: This is a 66-year-old female who comes in with alcohol abuse, dilated bile duct s, but is asymptomatic and denies any abdominal pain in her recent memory. 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 I have discussed the possibility of the patient needing a laparoscopic cholecystectomy. However, as she is completely asymptomatic, there is no urgency to perform this at this time. However, she state s that she would not submit any surgical procedure at this point and outright refuses any surgical in tervention. She states that as she has no pain, she refuses to have any surgical intervention and do es not want to continue consideration of this at this time. She is amenable to discussion of an ERCP or endoscopy. As such, we will await Dr. Burnett's recommendations to see if he believes she is a go od candidate for ERCP or other interrogation of her biliary system prior to consideration for any kala gical intervention. Continue monitoring her LFTs and transaminases. Continue medical management per Dr. Zeng. Thank you for this interesting consult. RUBINA/BEBE Voice ID: [id number] Report ID: [id number]
[2022-03-27] MEDS: HYDROCODONE/APAP 10/325 TAB PO PRN (17:12)
[2022-03-27] MEDS: METOPROLOL TAR 25 MG TAB PO SCH (17:13)
[2022-03-27] MEDS: chlordiazePOXIDE HCl 5 MG CAP PO SCH (20:33)
[2022-03-27 23:55] VITALS: O2SAT 97
[2022-03-28] MEDS: PIPER TAZO 3.375 GM in NA CHLORIDE 0.9% 100 ML IV SCH ×3 (01:04→17:00)
[2022-03-28] MEDS: HYDROCODONE/APAP 10/325 TAB PO PRN ×2 (06:52→18:11)
[2022-03-28] MEDS: METOPROLOL TAR 25 MG TAB PO SCH ×2 (06:53→18:00)
--- NOTE | 2022-03-28 09:20 | RAD REPORT ---
EXAM DESCRIPTION: CT - Head Brain Wo Cont - 03/28/2022 8:42 am CLINICAL HISTORY: Ataxia Headache, drowsiness, ataxia COMPARISON: No comparisons TECHNIQUE: All CT scans are performed using dose optimization technique as appropriate and may inclu de automated exposure control or mA/KV adjustment according to patient size. FINDINGS: No intracranial hemorrhage, hydrocephalus or extra-axial fluid collection.Mild generalized brain atrophy is present with mild periventricular and deep white matter chronic microvascular ische omer changes.No areas of brain edema or evidence of midline shift. The paranasal sinuses and mastoids are clear. The calvarium is intact. IMPRESSION: No acute intracranial abnormality.
[2022-03-28] MEDS: chlordiazePOXIDE HCl 5 MG CAP PO SCH ×3 (10:06→21:00)
[2022-03-28] MEDS: MULTIVITAMINS INJ 10 ML, THIAMINE HCL 100 MG, FOLIC ACID 1 MG in NA CHLORIDE 0.9% 1,000 ML IV SCH (10:07)
--- NOTE | 2022-03-28 13:24 | P.PN ---
Subjective Date of Service: 03/28/22 Chief Complaint: fever; sepsis; leukocytosis no pain today @ rest Physical Examination - Vital Signs Temperature: 97.3 F Blood Pressure: 98/62 Pulse: 83 Respirations: 18 Pulse Ox (%): 91 - Physical Exam General: Alert, In no apparent distress, Cooperative Respiratory: Clear to auscultation bilaterally, Normal air movement Cardiovascular: Regular rate/rhythm Gastrointestinal: Soft and benign, Non-distended, No ascites, No tenderness, No masses, No rebound, No guarding - Studies Medications List Reviewed: Yes Assessment And Plan - Current Problems (Diagnosis) (1) Common bile duct dilation Current Visit: Yes Status: Acute Plan: - Await GI recommendations, consider ERCP for evaulation of biliary system - continue medical management - patient remains asymptomatic with respect to abdominal pain - continue supportive care and PT for pubic fracture - serial exams - patient refuses to consider cholecystectomy @ this time.
[2022-03-28 15:29] LABS: Absolute Lymphocytes (CBC) 1.8 K/uL (0.7-4.9); Hematocrit 45.5 % (36.0-45.0); Lymphocytes % 17.5 % (15.3-44.8); MCV 107.4 fL (80-100); MPV 8.8 fL (7.6-11.3); RBC Red Blood Cell Count 4.23 M/uL (3.86-4.86)
[2022-03-28 15:35] LABS: Albumin 2.3 g/dL (3.4-5.0); Bilirubin Total 1.7 mg/dL (0.2-1.0); Potassium 3.5 mmol/L (3.5-5.1)
--- NOTE | 2022-03-28 16:04 | P.PN ---
Subjective Date of Service: 03/28/22 Chief Complaint: fever; sepsis; leukocytosis, EtOH abuse, cholecystitis / cholelithiasis Subjective: New changes (Reports diarrhea today. Still refuses invasive interventions / therapies. Awaiting placment.) Review of Systems 10-point ROS is otherwise unremarkable Gastrointestinal: Abdominal Pain (Improved) Physical Examination - Vital Signs Temperature: 97.2 F Blood Pressure: 117/79 Pulse: 86 Respirations: 18 Pulse Ox (%): 93 - Physical Exam General: Alert, In no apparent distress, Oriented x3, Cooperative HEENT: Atraumatic, Normocephalic, PERRLA, EOMI Neck: Supple Respiratory: Normal air movement Cardiovascular: Normal pulses Gastrointestinal: Tenderness, Guarding Neurological: Normal speech, Normal strength at 5/5 x4 extr - Studies Medications List Reviewed: Yes Assessment And Plan - Current Problems (Diagnosis) (1) Cholelithiasis Current Visit: Yes Status: Acute (2) Alcohol abuse Current Visit: Yes Status: Acute (3) Abnormal liver enzymes Current Visit: Yes Status: Acute (4) Wernicke encephalopathy Current Visit: Yes Status: Acute (5) Korsakoff's psychosis, alcohol related Current Visit: Yes Status: Acute (6) Acute cholecystitis Current Visit: Yes Status: Acute (7) Diarrhea Current Visit: Yes Status: Acute - Plan REC: 1) check stool studies 2) review meds for possible cause of diarrhea 3) continue po diet
--- NOTE | 2022-03-28 16:59 | P.PN ---
Date of Service: 03/27/22 Subjective Pt starting to do more with PT. Standing with walker. Working on rehab Review of Systems 10-point ROS is otherwise unremarkable Physical Examination - Vital Signs reviewed - Physical Exam General: Alert, In no apparent distress, Oriented x3 Respiratory: Clear to auscultation bilaterally, Normal air movement Cardiovascular: Regular rate/rhythm, Normal S1 S2 Gastrointestinal: Hypoactive, No tenderness, mildly distended Msk: left hip pain Neurological: generalized weakness Assessment & Plan - Problems (Diagnosis) (1) Fever Current Visit: Yes Status: Acute (2) Leukocytosis Current Visit: Yes Status: Acute (3) Choledocholithiasis Current Visit: Yes Status: Acute (4) Biliary ductal dilatation Current Visit: Yes Status: Acute (5) Wernicke encephalopathy Current Visit: Yes Status: Acute (6) Pelvic fracture Current Visit: Yes Status: Acute - Plan Continue with POC as mentioned -Continue with IV hydration -Continue with IV antibiotics -MRCP no abnormality -pain controlled -Monitor for DTs -GI consultation appreciated -surgery consultation appreciated -CT head pending - Advance Directives Does patient have a Living Will: No Does patient have a Durable POA for Healthcare: No
--- NOTE | 2022-03-28 17:01 | P.PN ---
Date of Service: 03/28/22 Subjective Pt starting to do more with PT. Standing with walker. Working on rehab[facility] Review of Systems 10-point ROS is otherwise unremarkable Physical Examination - Vital Signs reviewed - Physical Exam General: Alert, In no apparent distress, Oriented x3 Respiratory: Clear to auscultation bilaterally, Normal air movement Cardiovascular: Regular rate/rhythm, Normal S1 S2 Gastrointestinal: Hypoactive, No tenderness, mildly distended Msk: left hip pain Neurological: generalized weakness Assessment & Plan - Problems (Diagnosis) (1) Fever Current Visit: Yes Status: Acute (2) Leukocytosis Current Visit: Yes Status: Acute (3) Choledocholithiasis Current Visit: Yes Status: Acute (4) Biliary ductal dilatation Current Visit: Yes Status: Acute (5) Wernicke encephalopathy Current Visit: Yes Status: Acute (6) Pelvic fracture Current Visit: Yes Status: Acute - Plan Continue with POC as mentioned -Heplock IV -Continue with antibiotics -Family wanting [facility] and wanting PT -MRCP no abnormality -pain controlled -Monitor for DTs -GI consultation appreciated -surgery consultation appreciated -CT head pending - Advance Directives Does patient have a Living Will: No Does patient have a Durable POA for Healthcare: No
--- NOTE | 2022-03-28 17:16 | P.PN ---
Date of Service: 03/28/22 Family is wanting patient to go to [facility]. Patient family member will get paperwork completed and hopefully we can discharge her tomorrow to [facility] care with physical therapy and nursing care. Outpatient follow-up with gastroenterology, neurology, and surgery. This way she will also be able to refrain from alcohol use.
[2022-03-28] MEDS ORDERED: NA CHLORIDE 0.9% 1,000 ML IV ONE (19:23)
[2022-03-28] MEDS ORDERED: NA CHLORIDE 0.9% 1,000 ML ONE (19:33)
[2022-03-28] MEDS ORDERED: metroNIDAZOLE 250 MG TABLET PO SCH ×2 (21:00)
[2022-03-28] MEDS: metroNIDAZOLE 500 MG TABLET PO SCH (22:21)
[2022-03-29 06:18] LABS: Albumin 2.1 g/dL (3.4-5.0); Bilirubin Direct 0.8 mg/dL (0-0.2); Bilirubin Total 1.2 mg/dL (0.2-1.0); Potassium 3.1 mmol/L (3.5-5.1); Protein, Total 4.3 g/dL (6.4-8.2)
[2022-03-29] MEDS ORDERED: PANTOPRAZOLE 40MG TABLET PO SCH (06:30)
[2022-03-29] MEDS: METOPROLOL TAR 25 MG TAB PO SCH (06:42)
[2022-03-29] MEDS ORDERED: FOLIC ACID 1 MG TABLET PO SCH (09:00)
[2022-03-29] MEDS ORDERED: CYANOCOBALAMIN 1,000 MCG TAB PO SCH (09:00)
[2022-03-29] MEDS ORDERED: levoFLOXacin 500 MG TAB PO SCH (09:00)
[2022-03-29] MEDS ORDERED: THIAMINE HCL 100 MG TABLET PO SCH (09:00)
[2022-03-29] MEDS: metroNIDAZOLE 500 MG TABLET PO SCH ×2 (10:05→14:00)
[2022-03-29] MEDS: chlordiazePOXIDE HCl 5 MG CAP PO SCH ×2 (10:05→14:00)
--- NOTE | 2022-03-29 10:51 | CON ---
Date of Consultation: 03/25/2022 Reason For Consultation: Cholelithiasis and cholecystitis with right upper quadrant pain. Positive Howell sign. History Of Present Illness: The patient is a 66-year-old white female with history of alcohol abuse, who presented to hospital with right upper quadrant pain, found to also have a strong history of alcohol or alcohol abuse. She also has sepsis with a white count of 23,000, thought to be due to cholecystitis. Past Medical History: Significant for hypertension and alcohol abuse. Home Medications: Appears to be none. Allergies: NKDA. Social History: Alcohol. She is a x2. One son who lives in [place]. She and sister report that she can drink 2 to 3 bottles of wine per day. She is going to move according to sister to live with sister in the [place] in [place]. Family History: Father of myocardial infarction. Mother of a cortical basilar degeneration, also called Parkinson disease plus. It is according to the sister. Review of Systems: The patient has right upper quadrant pain. Denies nausea, vomiting, fevers, chills, night sweats, melena, hematochezia, emesis of coffee-ground, hematuria, dysuria, polydipsia, seizure, syncope, muscle aches, joint aches, backaches. Past Medical History: The patient has confabulation consistent with her long history of alcohol and probably Wernicke encephalopathy, Korsakoff syndrome, alcohol-related syndrome. Physical Examination: Vital Signs: The patient is 5 feet, 125 pounds, BMI. 24.4 kg/m2. General: Well-nourished female, somewhat disoriented, lying in bed, in no acute distress with sister at bedside. HEENT: Normocephalic, atraumatic. Slight icterus. Pupils ARE equal, round, and reactive to light. Extraocular movements are intact. Oropharynx clear with slight icterus Neck: Supple. No masses. Respirations: Clear to auscultation bilaterally. Cardiac: Regular rate and rhythm. No gallops or rubs. Abdomen: Positive bowel sounds. Soft, nondistended. Pain in the right upper quadrant, greater in midepigastric area with positive Howell sign. Extremities: No clubbing, cyanosis, or edema. 2+ pulses. Neuro: Alert and oriented times 2 to 3. The patient has confabulation when asking questions and makes up stories according to sister report of her answers. Able to move all extremities. Laboratory Data: On admission yesterday, the patient's white count 23.1. IV antibiotics double coverage for gram-negative were started as well. The patient's white count has come down to 10.0 today, hemoglobin of 13.2, hematocrit 39, MCV of 104, platelet count of 109, down from 177 yesterday, polys of 82% down from 91% yesterday, lymphocytes 11%, monocytes 6%. Has PT of 12.4, INR of 1.12, PTT 27.9. The patient has a sodium 138, potassium 3.8, chloride 109, bicarb 22, BUN 9, creatinine of 0.54, glucose 87, lactic acid of 4.5, slightly elevated, calcium 7.7, total bilirubin of 1.6 down from 2.3 on admission, AST of 64 down from 80 on admission, ALT of 39 down from 46, alkaline phosphatase 110, down from 148 on admission. Ammonia is less than 15, troponin I at 44.3 within normal range. Total protein 4.7, albumin 2.4, globulin of 2.3, lipase of 43. The patient has 1+ ketones, trace blood, otherwise negative. Toxicology, serum alcohol less than 10. COVID-19 testing was negative. Ultrasound of the abdomen revealed several subcentimeter smaller gallstones without gallbladder abnormality, dilatation of common bile duct at 9 mm, but no stone identified. CT chest, abdomen, and pelvis revealed no acute finding. Cholelithiasis with deficit, but no CT evidence of acute cholecystitis and MRCP revealed cholelithiasis with some bile duct dilatation, but no evidence of choledocholithiasis, no stones in the bile duct. Impression: 1. Cholecystitis and cholelithiasis. Right upper quadrant pain. Positive Howell sign. Ultrasound of the abdomen CT revealed gallstones in gallbladder with mild biliary dilatation, but no evidence of stones in the bile duct. MRCP once again revealed gallstones in the gallbladder, but there was no evidence of stone in the biliary tree. The patient has a total bilirubin of 2.3, decreased to 1.6. AST and ALT slightly elevated, alkaline phosphatase decreased as well. The patient has sepsis with double coverage gram negative. White count is down to normal 10 today, overnight with IV antibiotics. 2. History of alcohol abuse. Wernicke-Korsakoff encephalopathy syndrome and hypertension. Recommendations: 1. Continue IV fluids, IV antibiotics. 2. P.r.n. benzodiazepines. 3. DVT precautions. 4. Thiamine and folate. 5. Alcoholics anonymous rehab on discharge. 6. Laparoscopic cholecystectomy as per Surgery. Of note, as today, the patient states she refuses invasive interventions at this time including laparoscopic cholecystectomy, ERCP or other (sister is at bedside). 7. Currently with negative MRCP, there is no indication for ERCP. RACHID/BEBE Voice ID: [id number] Report ID: [id number]
--- NOTE | 2022-03-29 14:50 | P.DS ---
Admission Date: 03/24/22 Discharge Date: 03/29/22 Disposition: ROUTINE DISCHARGE Comment: [facility] Discharge Condition: GOOD Reason for Admission: Fever; sepsis; leukocytosis Consultations: 1. General Surgery 2. Gastroenterology 3. 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 Sybil Meza is a 66 year old female with a past medical history significant for alcohol use disorder and chronic obstructive pulmonary disease who was admitted to the [facility] on 03/24/2022 for hip and abdominal pain. She was admitted to the Medicine service for further evaluation. Upon evaluation, a left hip x-ray revealed, "severe AVN/ hip joint degenerative change on the left not substantially different from September 2021. Fracture of the left superior pubic ramus at the pubic symphysis." A right upper quadrant abdominal ultrasound revealed, "several small sub centimeter mobile gallstones without other gallbladder abnormality. Dilation of the common bile duct to 9 mm with no duct stone identifiable." General Surgery was consulted and she was evaluated by Dr. [facility]cal[facility]. He recommended a Gastroenterology consultation for ERCP followed by a cholecystectomy; however, she refused the cholecystectomy. A CT abdomen/pelvis revealed, "no acute findings within the chest, abdomen, or pelvis. Cholelithiasis with extrahepatic biliary duct dilatation but no CT evidence of acute cholecystitis." An MRCP was performed, which revealed, " cholelithiasis and both intra and extrahepatic biliary ductal dilatation but no evidence of choledocholithiasis, stricture, or mass." Over the course of her hospitalization, her symptoms improved significantly. She was evaluated by Orthopedic Surgery, stated that no surgical intervention was required. Since she declined surgical intervention, it was highly recommended that she schedule follow-up appointment with General Surgery at her earliest convenience. Dr. Alcala discussed this with her and her sister several times and provided her with contact information to schedule a follow-up in his clinic. On 03/29/2022, she was seen on rounds and deemed medically stable for discharge. She was discharged with instructions to schedule follow-up appointments with her PCP in 3-5 days, Gastroenterology (Dr. Burnett) in 3-5 days, and General Surgery (Dr. Alcala) in 3-5 days. She was given the opportunity to ask questions and reported no further questions. Furthermore, all questions were answered to the best of my ability. Today, I personally spent 25 minutes on her case, of which greater than 50% of the time was spent in patient education, counseling, and coordination of care as described above. Vital Signs/Physical Exam: Temp Pulse Resp BP Pulse Ox 97.2 F 77 14 103/68 97 03/29/22 12:00 03/29/22 12:00 03/29/22 12:00 03/29/22 12:00 03/29/22 12:00 General: Alert, In no apparent distress, Oriented x3 HEENT: Atraumatic, PERRLA, Mucous membr. moist/pink, EOMI, Sclerae nonicteric Neck: Supple, JVD not distended Respiratory: Clear to auscultation bilaterally, Normal air movement Cardiovascular: No edema, Regular rate/rhythm, Normal S1 S2, No gallops, No r ubs, No murmurs Gastrointestinal: Normal bowel sounds, Soft and benign, Non-distended, No tenderness, No rebound, No guarding Musculoskeletal: No clubbing Integumentary: No rashes Neurological: Normal speech, Cranial nerves 3-12 intact, Normal affect Laboratory Data at Discharge: WBC 10.2 K/uL (4.3-10.9) 03/28/22 15:02 Hgb 15.2 g/dL (12.0-15.0) H 03/28/22 15:02 Hct 45.5 % (36.0-45.0) H D 03/28/22 15:02 Plt Count 146 K/uL (152-406) L D 03/28/22 15:02 PT 12.4 SECONDS (9.5-12.5) 03/25/22 06:01 INR 1.12 03/25/22 06:01 APTT 27.9 SECONDS (24.3-36.9) 03/25/22 06:01 Sodium 140 mmol/L (136-145) 03/29/22 05:52 Potassium 3.1 mmol/L (3.5-5.1) L 03/29/22 05:52 BUN 5 mg/dL (7-18) L 03/29/22 05:52 Creatinine 0.41 mg/dL (0.55-1.3) L 03/29/22 05:52 Glucose 94 mg/dL (74-106) 03/29/22 05:52 Magnesium 2.0 mg/dL (1.8-2.4) 03/28/22 15:02 Total Bilirubin 1.2 mg/dL (0.2-1.0) H 03/29/22 05:52 AST 28 U/L (15-37) 03/29/22 05:52 ALT 28 U/L (12-78) 03/29/22 05:52 Alkaline Phosphatase 87 U/L (45-117) 03/29/22 05:52 Lipase 43 U/L (73-393) L 03/24/22 12:54 Home Medications: Losartan Potassium [Cozaar] 25 mg PO DAILY 03/26/22 Metoprolol Tartrate [Lopressor*] 25 mg PO BID 6AM 6PM #60 tab 03/29/22 Thiamine HCl [Vitamin B-1*] 100 mg PO DAILY 03/29/22 levoFLOXacin [Levaquin*] 500 mg PO DAILY 5 Days #5 tab 03/29/22 metroNIDAZOLE [Flagyl*] 500 mg PO TID 5 Days #15 tab 03/29/22 New Medications: metroNIDAZOLE [Flagyl*] 500 mg PO TID 5 Days #15 tab levoFLOXacin [Levaquin*] 500 mg PO DAILY 5 Days #5 tab Metoprolol Tartrate [Lopressor*] 25 mg PO BID 6AM 6PM #60 tab Physician Discharge Instructions: 1. Please schedule a follow-up appointment with your PCP in 3-5 days 2. Please schedule a follow-up appointment with General Surgery (Dr. Alcala) in 3-5 days 3. Please schedule a follow-up appointment with Gastroenterology (Dr. Burnett) in 3-5 days Diet: AHA Activity: Ad irvin Followup: NONE,NONE [Primary Care Provider] - Hero Burnett MD [ASSOCIATE-ACTIVE - CAN ADMIT] - Monico Alcala MD [ACTIVE - CAN ADMIT] - Time spent managing pt's care (in minutes): 25
[2022-03-29 16:33] VITALS: BP 99/63; TEMP 97
[2022-03-29] MEDS ORDERED: POTASSIUM 25 MEQ EFFERV TAB PO ONE (17:00)
[2022-03-29] MEDS ORDERED: ENOXAPARIN 40 MG/0.4 ML SQ SCH (18:00)
--- NOTE | 2022-03-30 08:30 | EKG ---
Test Date: 2022-03-24 Test Time: 11:36:38 Special Services Supervisor: KARMA MEASUREMENT RESULTS: Intervals: Rate: 143 SD: 112 QRSD: 66 QT: 286 QTc: 441 [place]: P: 34 SD: 112 QRS: -1 T: 59 INTERPRETIVE STATEMENTS: Sinus tachycardia Low voltage QRS Possible Inferior infarct, age undetermined Cannot rule out Anterior infarct, age undetermined Abnormal ECG Compared to ECG 08/21/2004 08:32:00 Low QRS voltage now present Myocardial infarct finding still present Electronically Signed On 03-30-22 08:13:29 CDT by Espinoza Ray
== END 2022-03-29 18:05 | disposition home or self-care (01) | DRG 871 ==
LOC: ER 11:19 → ERHOLD 15:37 → 2ND 20:08
PROVIDERS: ADMIT Hospitalist; ATTEND Hospitalist
DX: A41.9 Sepsis, unspecified organism (principal); R65.21 Severe sepsis with septic shock; S32.592A Other specified fracture of left pubis, initial encounter for closed fracture; K80.40 Calculus of bile duct with cholecystitis, unspecified, without obstruction; M87.852 Other osteonecrosis, left femur; M48.56XA Collapsed vertebra, not elsewhere classified, lumbar region, initial encounter for fracture; E51.2 Wernicke's encephalopathy; F10.288 Alcohol dependence with other alcohol-induced disorder; J44.9 Chronic obstructive pulmonary disease, unspecified; I10 Essential (primary) hypertension; Z87.891 Personal history of nicotine dependence; Z20.822 Contact with and (suspected) exposure to COVID-19
CPT/HCPCS: 36415; 51702; 70450; 71045; 71260; 74177; 74181; 76705; 80053; 80320; 81003; 81015; 82140; 82248; 82550; 83605; 83690; 83735; 83880; 84484; 85025; 85610; 85730; 87040; 87811; 93005; 96361; 96365; 97110; 97161; 97530; 99285; J0692; J2270; J2405; J2543; J3370; J3411; J7030; J7050; Q9967

== ENCOUNTER 2022-03-31 21:39 | Inpatient (IN) | payer OTHER ==
--- OUTSIDE RECORDS SUMMARY | 2022-03-31 21:42 | XMS REPORT | Continuity of Care Document ---
:1955 Author Organization [facility] t Address [address] [place] [address] Care Team Providers Name Role Phone Angelia Quiroz MD Primary Care Physician [phone] ANGELIA QUIROZ Attending Clinician Unavailable LUCHO ANGEL Attending Clinician Unavailable LAB90 Attending Clinician Unavailable Angelia Quiroz MD Attending Clinician [phone] Payers Payer Name Policy Type Policy Number Effective Date Expiration Date S tomasz TRS BLUE ESSENTIALS 9 [id number] 2021 CAPITATED [employer]IM [employer]US 00:00:00 BC[employer]-ESSENTIALS 2 [id number] 2021 00:00:00 Problems Condition Condition Condition Status [...] Medication? Clinician (SIG) Name Name Losartan Yes [id number] 25mg Take 1 Star y Potassium 2-01 tablet (25 Seyb old 25 MG oral 00:00: mg total) Tablet 00 by mouth daily Meloxicam Yes [id number] 7.5mg Take 1 Roxanne 7.5 MG oral 2 tablet Seybol d Tablet 00:00: (7.5 mg 00 total) by mouth daily Lisinopril 2020-08 40mg Take 1 Orquidea ey 40 MG oral 09-23 tablet (40 Se ybold Tablet 00:00: 00:00 mg total) 00 :00 by mouth daily Nitrofurant Yes [id number] 100mg Take 1 Roxanne oin Monohyd 7-15 [...] Department ID 2021-10-22 2021-10-22 Outpatient ROXANNE QUIROZ [id number] [place] 00:00:00 00:00:00 ANGELIA vallejo 2021-10-08 2021-10-08 Outpatient ROXANNE QUIROZ [id number] [place] 00:00:00 00:00:00 ANGELIA Seybol d 2021-10-08 2021-10-08 Outpatient ROXANNE ART [id number] [place] 00:00:00 00:00:00 Seybol d 2021-10-07 2021-10-07 Outpatient ROXANNE QUIROZ [id number] [place] 00:00:00 00:00:00 ANGELIA Seybol d 2021-10-06 2021-10-06 Outpatient ROXANNE QUIROZ [id number] [place] 00:00:00 00:00:00 ANGELIA Seybol d 2021-10-05 2021-10-05 Outpatient ROXANNE QUIROZ [id number] [place] 00:00:00 00:00:00 ANGELIA Seybol d 2021-10-02 2021-10-02 Outpatient ROXANNE QUIROZ [id number] [place] 00:00:00 00:00:00 ANGELIA Seybol d 2021-10-02 2021-10-02 Outpatient ROXANNE ART [id number] [place] 00:00:00 00:00:00 Seybol d 2021-09-24 2021-09-24 Outpatient ROXANNE ANGEL [id number] R[place] 09:30:00 09:30:00 SHAJUAN Seybol d 2021-09-24 2021-09-24 Outpatient ROXANNE QUIROZ [id number] [place] 00:00:00 00:00:00 ANGELIA Seybol d 2021-09-23 2021-09-23 Outpatient ROXANNE QUIROZ [id number] [place] 00:00:00 00:00:00 ANGELIA Seybol d 2021-09-23 2021-09-23 Outpatient ROXANNE QUIROZ [id number] [place] 00:00:00 00:00:00 ANGELIA Seybol d 2021-09-22 2021-09-22 Outpatient ROXANNE QUIROZ [id number] [place] 00:00:00 00:00:00 ANGELIA Seybol d 2021-09-22 2021-09-22 Outpatient ROXANNE QUIROZ [id number] [place] 00:00:00 00:00:00 ANGELIA Seybol d 2021-09-21 2021-09-21 Outpatient ROXANNE QUIROZ [id number] [place] 00:00:00 00:00:00 ANGELIA Seybol d 2021-09-18 2021-09-18 Outpatient ROXANNE QUIROZ [id number] [place] 00:00:00 00:00:00 ANGELIA Seybol d 2021-09-18 2021-09-18 Outpatient ROXANNE QUIROZ [id number] [place] 00:00:00 00:00:00 ANGELIA Seybol d 2021-09-17 2021-09-17 Outpatient ROXANNE QUIROZ [id number] [place] 00:00:00 00:00:00 ANGELIA Seybol d 2021-09-16 2021-09-16 Outpatient ROXANNE QUIROZ [id number] [place] 00:00:00 00:00:00 ANGELIA Seybol d 2021-09-16 2021-09-16 Outpatient ROXANNE QUIROZ [id number] [place] 00:00:00 00:00:00 ANGELIA Seybol d 2021-09-15 2021-09-15 Outpatient LAB90 ROXANNE ART [id number] [place]anne 11:45:00 11:45:00 Seybol d 2021-09-15 2021-09-15 Office Ed Quiroz [id number] [place]oxanne 11:00:00 11:30:00 Visit Angelia Owens [id number] Se smileyphilip Head [id number] 2021-07-23 2021-07-23 Outpatient ROXANNE QUIROZ [id number] [place] 00:00:00 00:00:00 ANGELIA Seybol d 2021-02-27 2021-02-27 Outpatient ROXANNE QUIROZ [id number] [place] 00:00:00 00:00:00 ANGELIA Seybol d 2021-02-25 2021-02-25 Outpatient LAB90 ROXNANE ART [id number] [place] 15:00:00 15:00:00 Kehinde avllejo 2021-02-25 2021-02-25 Outpatient ROXANNE QUIROZ [id number] [place] 13:30:00 13:30:00 ANGELIA vallejo Results This patient has no known results.
[2022-03-31] MEDS ORDERED: NA CHLORIDE 0.9% 500 ML ONE (22:11)
--- NOTE | 2022-03-31 22:36 | RAD REPORT ---
EXAM DESCRIPTION: RAD - Chest Single View - 03/31/2022 10:27 pm CLINICAL HISTORY: COUGH COMPARISON: CT chest March 25, portable chest March 24 TECHNIQUE: AP portable chest image was obtained 03/31/2022 10:27 pm . FINDINGS: Upper lung field emphysematous changes are again noted. Hazy opacification is present with both lower lung marcos with at least moderate size bilateral pleural effusions present. Heart size i s upper normal. Upper lobe vasculature is mildly prominent. No pneumothorax. No acute bony abnormalit y seen. No acute aortic findings suspected. IMPRESSION: Moderately large bilateral pleural effusions with lung base infiltrate and/or atelectasi s superimposed on prominent COPD.
[2022-03-31 22:46] LABS: Absolute Lymphocytes (CBC) 0.9 K/uL (0.7-4.9); Hematocrit 44.6 % (36.0-45.0); Lymphocytes % 11.8 % (15.3-44.8); MCV 105.2 fL (80-100); MPV 8.6 fL (7.6-11.3); RBC Red Blood Cell Count 4.24 M/uL (3.86-4.86)
[2022-03-31] MEDS ORDERED: AZITHROMYCIN 500 MG INJ IVPB ONE (23:01)
[2022-03-31] MEDS ORDERED: NA CHLORIDE 0.9% 50 ML ONE (23:01)
[2022-03-31] MEDS ORDERED: NA CHLORIDE 0.9% 250 ML ONE (23:01)
[2022-03-31] MEDS ORDERED: CEFTRIAXONE 1000 MG/VIAL ONE (23:01)
[2022-03-31 23:08] LABS: Protime INR 1.22
[2022-03-31 23:56] LABS: Blood Morphology Comment NOTED (NOT SEEN); Macrocytosis 1+; Platelet Estimate ADEQ; White Blood Cell Scan OK (OK)
[2022-04-01 00:24] LABS: ALT/SGPT 24 U/L (12-78); AST/SGOT 25 U/L (15-37); Albumin 2.3 g/dL (3.4-5.0); Alkaline Phosphatase 141 U/L (45-117); Bicarbonate 24 mmol/L (21-32); Bilirubin Total 0.9 mg/dL (0.2-1.0); Glomerular Filtration Rate 106 ml/min (=/>90); Glucose Level 129 mg/dL (74-106); Potassium 3.1 mmol/L (3.5-5.1); Protein, Total 4.9 g/dL (6.4-8.2); Sodium Level 140 mmol/L (136-145); Troponin High Sensitivity 14.7 pg/mL (<58.9)
[2022-04-01 00:27] LABS: BUN Blood Urea Nitrogen < 3 mg/dL (7-18)
[2022-04-01 00:28] LABS: Urine Blood Negative (Negative); Urine Glucose Negative (Negative); Urine Protein Negative (Negative); Urine pH 5.5 (5.0-7.0)
[2022-04-01 00:58] LABS: NT PRO-BNP 3302 pg/mL (<125)
--- NOTE | 2022-04-01 00:59 | ER ---
Nurse's Notes [facility] Name: Sybil Meza Age: 66 yrs Sex: Female : 1955 Arrival Date: 03/31/2022 Time: 21:44 Bed 23 Private MD: Diagnosis: Hypoxemia;Dyspnea, unspecified;Pleural effusion, not elsewhere classified Presentation: 03/31 21:49 Chief complaint: EMS states: called out for shortness of breath and cough x2 days. as6 Coronavirus screen: Client presents with at least one sign or symptom that may indicate coronavirus-19. Ebola Screen: No symptoms or risks identified at this time. Initial Sepsis Screen: Does the patient meet any 2 criteria? RR > 20 per min. Does the patient have a suspected source of infection? No. Patient's initial sepsis screen is negative. Risk Assessment: Do you want to hurt yourself or someone else? Patient reports no desire to harm self or others. Onset of symptoms was March 29, 2022. Care prior to arrival: Medication(s) given: Solu-Medrol 125mg IV initiated. 22 GA, in the left antecubital area. 21:49 Method Of Arrival: EMS: [facility] as6 21:49 Acuity: LISA 3 as6 Historical: - PMHx: 21:53 Hypertensive disorder; as6 - Immunization history:: Client reports receiving the 2nd dose of the Covid vaccine. - Social history:: Smoking status: Patient/guardian denies using tobacco, but has a distant history of tobacco abuse. - Family history:: not pertinent. - Hospitalizations: : The patient was recently seen at [facility]. Screenin:53 Abuse screen: Denies threats or abuse. Denies injuries from another. Nutritional as6 screening: No deficits noted. Tuberculosis screening: No symptoms or risk factors identified. Fall Risk Fall in past 12 months (25 points). IV access (20 points). Total Small Fall Scale indicates High Risk Score (45 or more points). Fall prevention measures have been instituted. Side Rails Up X 2 Frequent Obs/Assessments Occuring. Assessment: 21:45 General: Appears ill, Behavior is calm, cooperative. Pain: Complains of pain in back. as6 Neuro: Level of Consciousness is awake, alert. Respiratory: Reports shortness of breath cough that is Respiratory effort is labored. Vital Signs: 21:49 BP 141 / 95; Pulse 84; Resp 24 S; Temp 97.4(O); Pulse Ox 91% on R/A; Weight 56.7 kg as6 (R); Height 5 ft. 1 in. (154.94 cm) (R); Pain 3/10; 22:18 BP 137 / 102; Pulse 83; Resp 20; aa9 04/01 02:46 BP 121 / 90; Pulse 86; Resp 16 S; Pulse Ox 94% on R/A; aa9 03/31 21:49 Body Mass Index 23.62 (56.70 kg, 154.94 cm) as6 ED Course: 03/31 21:44 Patient arrived in ED. mw2 21:45 Benito Fraire MD is Attending Physician. rn 21:48 Darnell Leger RN is Primary Nurse. as6 21:53 Triage completed. as6 21:53 Arm band placed on. as6 21:54 Bed in low position. Call light in reach. Side rails up X2. Client placed on continuous as6 cardiac and pulse oximetry monitoring. NIBP monitoring applied. 22:15 Inserted saline lock: 20 gauge in right antecubital area, using aseptic technique. as6 Blood collected. 22:15 Maintain EMS IV. Dressing intact. Good blood return noted. Site clean \\T\\ dry. Gauge \\T\\ as 6 site: 22g LAC. 22:28 Troponin High Sensitivity Sent. as6 22:28 BNP Sent. as6 22:28 Flu Sent. as6 22:28 SARS-COV-2 RT PCR (Document "Date of Onset" if Symptomatic) Sent. as6 22:28 Blood Culture Adult (2) Sent. as6 22:28 CBC with Diff Sent. as6 22:28 CMP Sent. as6 22:28 Lactate Sent. as6 22:28 Protime (+inr) Sent. as6 22:28 Ptt, Activated Sent. as6 22:29 Chest Single View XRAY In Process Unspecified. EDMS 04/01 00:33 Warm blanket given. aa9 00:58 Eliceo Gillis MD is Hospitalizing Provider. rn 03:23 No provider procedures requiring assistance completed. Patient admitted, IV remains in as6 place. 03:30 Inserted saline lock: 22 gauge in left forearm, using aseptic technique. vc1 Administered Medications: 03/31 22:28 Drug: NS 0.9% 500 ml Route: IV; Rate: bolus; Site: right antecubital; as6 23:02 Drug: Rocephin (cefTRIAXone) 1 grams Route: IV; Rate: calculated rate; Site: right as6 antecubital; 23:21 Drug: Zithromax (azithromycin) 500 mg Route: IVPB; Infused Over: 1 hrs; Site: left as6 antecubital; 04/01 01:25 Drug: Lasix (furosemide) 40 mg Route: IVP; Site: left antecubital; aa9 Medication: 03:23 VIS not applicable for this client. as6 Outcome: 00:58 Decision to Hospitalize by Provider. rn 03:23 Admitted to ER Hold. Please see [facility] for further documentation. as6 03:23 Condition: stable 03:23 Instructed on the need for admit. 15:08 Patient left the ED. eh3 Signatures: Dispatcher [employer] EDMS Benito Fraire MD MD rn [place], MyKena 2 Darnell Leger RN RN as6 Moni Rob RN RN vc1 Christelle Luevano RN RN eh3 Debbie Little RN RN aa9
--- NOTE | 2022-04-01 00:59 | EDPHYS ---
Physician Documentation [facility] Name: Sybil Meza Age: 66 yrs Sex: Female : 1955 Arrival Date: 03/31/2022 Time: 21:44 Bed 23 Private MD: ED Physician Benito Fraire HPI: 03/31 23:32 This 66 yrs old Female presents to ER via EMS with complaints of cough, sob. rn 23:32 The patient has shortness of breath at rest. Onset: The symptoms/episode began/occurred rn 2 day(s) ago. Duration: The symptoms are continuous. The patient's shortness of breath is aggravated by supine position, talking, is alleviated by application of supplemental oxygen. Associated signs and symptoms: Pertinent positives: non-productive cough, Pertinent negatives: chest pain, fever, hemoptysis. Severity of symptoms: At their worst the symptoms were moderate in the emergency department the symptoms have improved. The patient has not experienced similar symptoms in the past. The patient has been recently seen by a physician:. EMS reports O2 91% on RA, not on home O2, no diagnosis of COPD, given steroids and O2 by EMS. Pt states feels a little better. . Historical: - PMHx: 21:53 Hypertensive disorder; as6 - Immunization history:: Client reports receiving the 2nd dose of the Covid vaccine. - Social history:: Smoking status: Patient/guardian denies using tobacco, but has a distant history of tobacco abuse. - Family history:: not pertinent. - Hospitalizations: : The patient was recently seen at [facility]. ROS: 23:32 Constitutional: Negative for fever, chills, and weight loss, Eyes: Negative for injury, rn pain, redness, and discharge, Neck: Negative for injury, pain, and swelling, Cardiovascular: Negative for chest pain, palpitations Respiratory: + cough and sob Abdomen/GI: Negative for abdominal pain, nausea, vomiting, diarrhea, and constipation, Back: Negative for injury and pain, MS/Extremity: Negative for injury and deformity, Skin: Negative for injury, rash, and discoloration, Neuro: Negative for headache, numbness, tingling, and seizure. Exam: 23:32 Constitutional: Overweight female, mild tachypnea, no retractions Head/Face: rn Normocephalic, atraumatic. Cardiovascular: Regular rate and rhythm. No pulse deficits. Respiratory: + mild tachypnea with bilateral crackles, no retractions. Abdomen/GI: Soft, non-tender Skin: Warm, dry, no rash MS/ Extremity: Pulses equal, no cyanosis, + 1+ edema bilateral lower ext Neuro: Awake and alert, GCS 15 23:38 ECG was reviewed by the Attending Physician. rn Vital Signs: 21:49 BP 141 / 95; Pulse 84; Resp 24 S; Temp 97.4(O); Pulse Ox 91% on R/A; Weight 56.7 kg as6 (R); Height 5 ft. 1 in. (154.94 cm) (R); Pain 3/10; 22:18 BP 137 / 102; Pulse 83; Resp 20; aa9 04/01 02:46 BP 121 / 90; Pulse 86; Resp 16 S; Pulse Ox 94% on R/A; aa9 03/31 21:49 Body Mass Index 23.62 (56.70 kg, 154.94 cm) as6 MDM: 03/31 21:45 Patient medically screened. rn 04/01 00:57 Differential diagnosis: Bronchitis pneumonia, Pneumothorax pulmonary edema, Pulmonary rn Embolism Sepsis. Data reviewed: vital signs, nurses notes, lab test result(s), EKG, radiologic studies, plain films, and as a result, I will admit patient. Counseling: I had a detailed discussion with the patient and/or guardian regarding: the historical points, exam findings, and any diagnostic results supporting the discharge/admit diagnosis, lab results, radiology results, the need for further work-up and treatment in the hospital. Response to treatment: the patient's symptoms have mildly improved after treatment, and as a result, I will admit patient. Admission orders: after a detailed discussion of the patient's condition and case, the admit orders are written by me. 03/31 21:47 Order name: Blood Culture Adult (2) rn 03/31 21:47 Order name: CBC with Diff; Complete Time: 23:58 rn 03/31 21:47 Order name: CMP; Complete Time: 00:59 rn 03/31 21:47 Order name: Lactate; Complete Time: 23:12 rn 03/31 21:47 Order name: Protime (+inr); Complete Time: 23:12 rn 03/31 21:47 Order name: Ptt, Activated; Complete Time: 23:12 rn 03/31 21:47 Order name: Urine Culture rn 03/31 21:47 Order name: Urine Microscopic Only; Complete Time: 02:27 rn 03/31 21:47 Order name: SARS-COV-2 RT PCR (Document "Date of Onset" if Symptomatic); Complete Time: rn 23:51 03/31 21:47 Order name: Flu; Complete Time: 00:17 rn 03/31 21:47 Order name: BNP; Complete Time: 00:59 rn 03/31 21:47 Order name: Troponin High Sensitivity; Complete Time: 00:59 rn 03/31 22:39 Order name: Glucose, Ancillary Testing; Complete Time: 22:43 EDNH 03/31 23:05 Order name: CBC Smear Scan; Complete Time: 23:58 EDNH 03/31 21:47 Order name: Chest Single View XRAY; Complete Time: 22:43 rn 04/01 00:29 Order name: Urine Dipstick-Ancillary; Complete Time: 00:36 EDNH 04/01 01:05 Order name: DD la1 04/01 02:33 Order name: D-Dimer; Complete Time: 20:17 EDNH 04/01 02:34 Order name: Chest For PE Angio CT la1 04/01 06:39 Order name: CBC with Automated Diff; Complete Time: 20:17 EDMS 04/01 06:56 Order name: Comprehensive Metabolic Panel; Complete Time: 20:17 EDMS 04/01 06:56 Order name: Troponin High Sensitivity; Complete Time: 20:17 EDMS 04/01 06:56 Order name: Lipid Profile; Complete Time: 20:17 EDMS 04/01 06:56 Order name: T4 Free; Complete Time: 20:17 EDMS 04/01 06:56 Order name: Magnesium; Complete Time: 20:17 EDMS 04/01 08:14 Order name: Thyroid Stimulating Hormone; Complete Time: 20:17 EDMS 04/01 08:59 Order name: CT; Complete Time: 20:17 EDMS 18 14:14 Order name: Troponin High Sensitivity; Complete Time: 20:17 EDMS 03/31 21:47 Order name: Accucheck; Complete Time: 22:28 rn 03/31 21:47 Order name: Cardiac monitoring; Complete Time: 21:48 rn 03/31 21:47 Order name: EKG - Nurse/Tech; Complete Time: 21:55 rn 03/31 21:47 Order name: IV Saline Lock - Large Bore; Complete Time: 22:28 rn 03/31 21:47 Order name: Labs collected and sent; Complete Time: 22:28 rn 03/31 21:47 Order name: O2 Per Protocol; Complete Time: 21:48 rn 03/31 21:47 Order name: O2 Sat Monitoring; Complete Time: 21:48 rn 03/31 21:47 Order name: Urine Dipstick-Ancillary (obtain specimen); Complete Time: 00:28 rn EC/17 23:38 Rate is 84 beats/min. Rhythm is regular. QRS [place] is Normal. [place] interval is normal. QRS rn interval is normal. QT interval is normal. No Q waves. T waves are Normal. No ST changes noted. Clinical impression: NSR w/ Non-specific ST/T Changes. Interpreted by me. Reviewed by me. Administered Medications: :28 Drug: NS 0.9% 500 ml Route: IV; Rate: bolus; Site: right antecubital; as6 23:02 Drug: Rocephin (cefTRIAXone) 1 grams Route: IV; Rate: calculated rate; Site: right as6 antecubital; 23:21 Drug: Zithromax (azithromycin) 500 mg Route: IVPB; Infused Over: 1 hrs; Site: left as6 antecubital; 04/01 01:25 Drug: Lasix (furosemide) 40 mg Route: IVP; Site: left antecubital; aa9 Disposition Summary: 04/01/22 00:58 Hospitalization Ordered Hospitalization Status: Inpatient Admission rn Provider: Eliceo Gillis rn Condition: Stable rn Problem: new rn Symptoms: have improved rn Bed/Room Type: Standard rn Location: Telemetry/MedSurg (Inpatient)(04/01/22 14:12) haydee Room Assignment: [facility](04/01/22 14:12) ja Diagnosis - Hypoxemia rn - Dyspnea, unspecified rn - Pleural effusion, not elsewhere classified rn Forms: - Medication Reconciliation Form rn - SBAR form rn Signatures: Dispatcher [employer] EDBenito Steele MD MD rn Nathan Wheatley, INFRASTRUCTURE MANAGER-C INFRASTRUCTURE MANAGER-Cla1 Padmini Eason RN RN Esvin Canales RN RN sisi1 Darnell Leger, RN RN as6 Debbie Little, RN RN aa9 Corrections: (The following items were deleted from the chart) 00:24 03/31 23:32 Constitutional: Overweight female, mild tachypnea, no retractions rn Head/Face: Normocephalic, atraumatic. Cardiovascular: Regular rate and rhythm. No pulse deficits. Respiratory: + mild tachypnea with bilateral crackles, no retractions. Abdomen/GI: Soft, non-tender Skin: Warm, dry, no rash MS/ Extremity: Pulses equal, no cyanosis Neuro: Awake and alert, GCS 15 rn 04/01 01:49 00:58 Telemetry/MedSurg (Inpatient) rn cg 01:49 00:58 rn cg 14:12 01:49 [facility] ER HOLD cg ja1 14:12 01:49 ERHOLD- cg ja1
--- NOTE | 2022-04-01 01:21 | P.HP ---
Certification for Inpatient Patient admitted to: Inpatient With expected LOS: >2 Midnights Patient will require the following post-hospital care: None Practitioner: I am a practitioner with admitting privileges, knowledge of patient current condition, hospital course, and medical plan of care. Services: Services provided to patient in accordance with Admission requirements found in Title 42 Section 412.3 of the Code of Federal Regulations <Nathan Wheatley - Last Filed: 04/01/22 01:16> Patient History Date of Service: 04/01/22 Reason for admission: Dyspnea, new CHF History of Present Illness: 66-year-old female with history of COPD, alcohol use disorder, avascular necrosis of the left hip who was recently admitted to the hospital for septic shock secondary to acute cholecystitis, during her hospitalization she was evaluated by general surgery and refused a cholecystectomy she had an MRCP during her recent hospitalization which revealed cholelithiasis with both intra and extrahepatic biliary ductal dilatation but no evidence of choledocholithiasis stricture or mass, she was also evaluated by orthopedic surgery for her severe avascular necrosis of her left hip and concern for left superior pubic ramus fracture both were deemed nonoperative by orthopedics she declined surgical intervention was placed on antibiotics and was discharged home on 03/29/2022. Patient reports since she has been at home she has had cough and shortness of breath. She was evaluated here again in the emergency department her labs were significant for white blood cell count of 7.3 potassium 3.1 BNP 3302 high-sensitivity troponin 14.7 she had a chest x-ray which revealed moderately large bilateral pleural effusions, heart size upper normal limit, lung base infiltrate and/or atelectasis superimposed on prominent COPD. Patient without any fever, chills, leukocytosis doubt infectious process at this time patient with 2-3+ pitting edema of her lower extremities suspect new onset CHF. Patient was given 40 mg of IV Lasix in the emergency department ED provider wishes to admit for further evaluation and management. Given recent hospitalization, dyspnea, signs of heart failure a D-dimer was added on to rule out pulmonary embolism which is currently pending. - Past Medical/Surgical History Diabetic: No -: hypertension -: Alcohol abuse -: COPD -: None Psychosocial/ Personal History: Patient lives at home alone with her pet dog - Family History Father -: Heart disease - Social History Smoking Status: Former smoker Alcohol use: Yes CD- Drugs: No Caffeine use: Yes Place of Residence: Home <Nathan Wheatley - Last Filed: 04/01/22 01:16> Date of Service: 04/01/22 <lEiceo Gillis - Last Filed: 04/01/22 19:49> Allergies No Known Allergies Allergy (Unverified 03/24/22 16:13) Home Medications: Losartan Potassium [Cozaar] 25 mg PO DAILY 03/26/22 Metoprolol Tartrate [Lopressor*] 25 mg PO BID 6AM 6PM #60 tab 03/29/22 Thiamine HCl [Vitamin B-1*] 100 mg PO DAILY 03/29/22 levoFLOXacin [Levaquin*] 500 mg PO DAILY 5 Days #5 tab 03/29/22 metroNIDAZOLE [Flagyl*] 500 mg PO TID 5 Days #15 tab 03/29/22 Review of Systems 10-point ROS is otherwise unremarkable Respiratory: Cough, Shortness of Breath Cardiovascular: Orthopnea, Edema <Nathan Wheatley Frank - Last Filed: 04/01/22 01:16> Physical Examination - Physical Exam General: Alert, In no apparent distress, Oriented x3 HEENT: Atraumatic, PERRLA, Mucous membr. moist/pink, EOMI, Sclerae nonicteric Neck: Supple, 2+ carotid pulse no bruit, No LAD, Without JVD or thyroid abnormality Respiratory: Normal air movement, Crackles/rales Cardiovascular: Regular rate/rhythm, Normal S1 S2, Edema Gastrointestinal: Normal bowel sounds, No tenderness Musculoskeletal: No tenderness Integumentary: No rashes Neurological: Normal gait, Normal speech, Normal strength at 5/5 x4 extr, Normal tone, Normal affect Lymphatics: No axilla or inguinal lymphadenopathy - Studies Laboratory Data (last 24 hrs) 03/31/22 23:19: Sodium 140, Potassium 3.1 L, BUN < 3 L, Creatinine 0.45 L, Glu cose 129 H, Total Bilirubin 0.9, AST 25, ALT 24, Alkaline Phosphatase 141 H D 03/31/22 22:18: PT 13.5 H, INR 1.22, APTT 33.9 03/31/22 22:18: WBC 7.30 D, Hgb 15.3 H, Hct 44.6, Plt Count 210 D Microbiology Data (last 24 hrs): 03/31/22 22:18 Nasopharnyx Influenza Type A Antigen Screen - Final 03/31/22 22:18 Nasopharnyx Influenza Type B Antigen Screen - Final <Nathan Wheatley Frank - Last Filed: 04/01/22 01:16> - Studies Laboratory Data (last 24 hrs) 03/31/22 23:19: Sodium 140, Potassium 3.1 L, BUN < 3 L, Creatinine 0.45 L, Glucose 129 H, Total Bilirubin 0.9, AST 25, ALT 24, Alkaline Phosphatase 141 H D 03/31/22 22:18: PT 13.5 H, INR 1.22, APTT 33.9 03/31/22 22:18: WBC 7.30 D, Hgb 15.3 H, Hct 44.6, Plt Count 210 D Microbiology Data (last 24 hrs): 03/31/22 22:18 Nasopharnyx Influenza Type A Antigen Screen - Final 03/31/22 22:18 Nasopharnyx Influenza Type B Antigen Screen - Final <Eliceo Gillis - Last Filed: 04/01/22 19:49> Assessment and Plan - Plan Assessment: Dyspnea, moderate bilateral pleural effusions, peripheral edema suspect new onset CHF Hypertension COPD Recent hospitalization for septic shock/cholecystitis/left hip avascular necrosis Plan: Dyspnea, moderate bilateral pleural effusions, peripheral edema suspect new onset CHF: Doubt infectious process at this time, patient is afebrile, no leukocytosis appears to be more volume overloaded with peripheral edema, elevated BNP and pleural effusions. Patient given dose of IV Lasix in the emergency department we will continue diuresis with IV Lasix for tonight/today. Cardiology consulted for suspected new onset CHF, echocardiogram ordered. Patient denies any history of CHF has not previously been on any diuretics. We will continue patient's home medications metoprolol and losartan. Hypertension: Continue losartan, metoprolol. COPD: Patient was a former smoker, no wheezing noted this time will provide patient with as needed nebulizer treatments. Recent hospitalization for septic shock/cholecystitis/left hip avascular necrosis: Patient denies any abdominal pain no tenderness on exam, no leukocytosis. Patient had refused cholecystectomy during previous hospital ization, MRCP was negative for choledocholithiasis. Will monitor for signs of abdominal pain/tenderness or worsening. DVT PPX: Lovenox Code status: Full Discharge Plan: Home Plan to discharge in: 48 Hours - Advance Directives Does patient have a Living Will: No Does patient have a Durable POA for Healthcare: No - Code Status/Comfort Care Code Status Assessed: Yes (Full code) Critical Care: No Time Spent Managing Pts Care (In Minutes): 70 <Nathan Wheatley - Last Filed: 04/01/22 01:16> Physician Review: Patient Assessed, Agree with Above Assessment and Plan <Eliceo Gillis - Last Filed: 04/01/22 19:49>
[2022-04-01 01:30] LABS: Renal Epithelial <5 /HPF (None Seen); Urine Bacteria <20 /HPF (<20); Urine RBC <5 /HPF (None Seen)
[2022-04-01] MEDS ORDERED: FUROSEMIDE 40 MG/4 ML VIAL ONE ×2 (01:30→08:18)
[2022-04-01 03:28] VITALS: BMI 23.6
[2022-04-01] MEDS ORDERED: ONDANSETRON 4 MG/2 ML VIAL IV PRN (03:46)
[2022-04-01] MEDS ORDERED: ALBUTEROL 2.5 MG/3 ML NEB SOL NEB PRN (03:46)
[2022-04-01] MEDS: IPRATROPIUM BROM 0.5MG/2.5ML NEB SCH ×4 (04:00→20:00)
[2022-04-01] MEDS ORDERED: IPRATROPIUM BROM 0.5MG/2.5ML ONE ×3 (04:14→14:11)
[2022-04-01] MEDS: METOPROLOL TAR 25 MG TAB PO SCH ×2 (05:55→18:00)
[2022-04-01] MEDS ORDERED: METOPROLOL TAR 25 MG TAB ONE (05:58)
[2022-04-01 06:36] LABS: Absolute Lymphocytes (CBC) 0.4 K/uL (0.7-4.9); Hematocrit 47.9 % (36.0-45.0); Lymphocytes % 9.8 % (15.3-44.8); MPV 8.3 fL (7.6-11.3); RBC Red Blood Cell Count 4.53 M/uL (3.86-4.86)
[2022-04-01 06:39] LABS: MCV 105.8 fL (80-100)
[2022-04-01 06:44] LABS: ALT/SGPT 29 U/L (12-78); AST/SGOT 24 U/L (15-37); Albumin 2.3 g/dL (3.4-5.0); Alkaline Phosphatase 143 U/L (45-117); Bicarbonate 25 mmol/L (21-32); Bilirubin Total 0.8 mg/dL (0.2-1.0); Glomerular Filtration Rate 103 ml/min (=/>90); Glucose Level 146 mg/dL (74-106); HDL Cholesterol 55 mg/dL (40-60); LDL Cholesterol, Calculated 37 mg/dL (<130); Magnesium 1.9 mg/dL (1.8-2.4); Sodium Level 141 mmol/L (136-145); Troponin High Sensitivity 8.1 pg/mL (<58.9)
[2022-04-01 06:54] LABS: BUN Blood Urea Nitrogen < 3 mg/dL (7-18)
[2022-04-01] MEDS ORDERED: ENOXAPARIN 40 MG/0.4 ML SQ ONE (08:18)
[2022-04-01] MEDS ORDERED: LOSARTAN POTASSIUM 50 MG TABLET ONE (08:18)
[2022-04-01] MEDS: FUROSEMIDE 40 MG/4 ML VIAL IV SCH ×2 (08:58→16:25)
--- NOTE | 2022-04-01 08:58 | RAD REPORT ---
EXAM DESCRIPTION: CT - Chest For Pe Angio - 04/01/2022 8:50 am CLINICAL HISTORY: sob COMPARISON: March 25, 2022 TECHNIQUE: Dynamically enhanced axial 3 mm thick images of the chest were obtained during administra tion of <100> mL Isovue 370 IV contrast. Coronal and oblique reconstruction images were generated and reviewed. Exam utilizes a protocol for optimal evaluation of pulmonary arterial tree. Maximum intensity projections 3D imaging was utilized All CT scans are performed using dose optimization technique as appropriate and may include automated exposure control or mA/KV adjustment according to patient size. FINDINGS: A pulmonary embolus is not seen. A thoracic aortic aneurysm is not noted. Moderate bilateral pleural effusions with bilateral lower lobe atelectasis COPD A pericardial effusion is not seen. IMPRESSION: Negative for a pulmonary embolism. Moderate bilateral pleural effusions
[2022-04-01] MEDS ORDERED: ENOXAPARIN 40 MG/0.4 ML SQ SCH (09:00)
[2022-04-01] MEDS ORDERED: LOSARTAN POTASSIUM 50 MG TABLET PO SCH (09:00)
[2022-04-01] MEDS: ACETAMINOPHEN 500 MG TAB PO PRN (14:00)
--- NOTE | 2022-04-01 14:05 | ECHO ---
HEIGHT: 5 ft 1 in WEIGHT: 125 lb 0.034 oz DATE OF STUDY: 04/01/[address]: Nathan Wheatley NP 2-DIMENSIONAL: YES M.MODE: YES DOPPLER: YES COLOR FLOW: YES TDS: NO PORTABLE: YES DEFINITY: NO BUBBLE STUDY: NO DIAGNOSIS: DYSPNEA, PLEURAL EFFUSION, EDEMA CARDIAC HISTORY: CATHERIZATION: SURGERY: PROSTHETIC VALVE: PACEMAKER: MEASUREMENTS (cm) DIASTOLIC (NORMALS) SYSTOLIC (NORMALS) IVSd 0.9 (0.6-1.2) LA Diam 3.0 (1.9-4.0) LVEF 60% LVIDd 4.0 (3.5-5.7) LVIDs 2.7 (2.0-3.5) %FS 32% LVPWd 1.1 (0.6-1.2) Ao Diam 3.0 (2.0-3.7) 2 DIMENSIONAL ASSESSMENT: RIGHT ATRIUM: NORMAL LEFT ATRIUM: NORMAL RIGHT VENTRICLE: NORMAL LEFT VENTRICLE: NORMAL TRICUSPID VALVE: NORMAL MITRAL VALVE: NORMAL PULMONIC VALVE: NORMAL AORTIC VALVE: NORMAL PERICARDIAL EFFUSION: SMALL TO MODERATE AORTIC ROOT: NORMAL LEFT VENTRICULAR WALL MOTION: NORMAL DOPPLER/COLOR FLOW: NORMAL COMMENTS: NORMAL LEFT VENTRICULAR EJECTION FRACTION 55-60%. NORMAL WALL MOTION. SMALL TO MODERATE PERICARDIAL EFFUSION. TECHNOLOGIST: Marilyn JORGENSEN
[2022-04-01] MEDS ORDERED: ACETAMINOPHEN 500 MG TAB ONE (14:11)
[2022-04-01] MEDS ORDERED: POTASSIUM 25 MEQ EFFERV TAB PO ONE (16:10)
[2022-04-02] MEDS ORDERED: NA CHLORIDE 0.9% 250 ML IV ONE (00:37)
[2022-04-02] MEDS: IPRATROPIUM BROM 0.5MG/2.5ML NEB SCH ×4 (01:30→19:45)
[2022-04-02 06:06] LABS: Absolute Lymphocytes (CBC) 1.6 K/uL (0.7-4.9); Hematocrit 36.7 % (36.0-45.0); Lymphocytes % 18.4 % (15.3-44.8); MCV 103.5 fL (80-100); MPV 7.9 fL (7.6-11.3); RBC Red Blood Cell Count 3.55 M/uL (3.86-4.86)
[2022-04-02 06:21] LABS: Albumin 1.9 g/dL (3.4-5.0); Bilirubin Total 0.7 mg/dL (0.2-1.0); Magnesium 1.7 mg/dL (1.8-2.4); Protein, Total 4.1 g/dL (6.4-8.2)
[2022-04-02 07:05] LABS: White Blood Cell Scan OK (OK)
[2022-04-02 07:06] LABS: Anisocytosis 1+; Blood Morphology Comment NOTED (NOT SEEN); Macrocytosis 1+; Platelet Estimate ADEQ; Platelets, Giant FEW
[2022-04-02] MEDS ORDERED: POTASSIUM 25 MEQ EFFERV TAB PO ONE (09:00)
[2022-04-02] MEDS ORDERED: MAGNESIUM SULFATE 1 gm IVPB 1 GM/100 ML BAG IV ONE (09:00)
[2022-04-02] MEDS: ACETAMINOPHEN 500 MG TAB PO PRN ×3 (09:16→22:28)
[2022-04-02] MEDS ORDERED: MORPHINE 2 MG/ML SYR IV ONE (12:20)
[2022-04-02] MEDS ORDERED: ALBUTEROL 2.5 MG/3 ML NEB SOL NEB PRN (15:00)
--- NOTE | 2022-04-02 22:41 | P.PN ---
Subjective Date of Service: 04/02/22 Chief Complaint: Dyspnea, new CHF No acute events overnight. She reports that her shortness of breath is unchanged. She denies any chest pain, nausea, or vomiting. Review of Systems 10-point ROS is otherwise unremarkable Respiratory: Shortness of Breath Physical Examination - Vital Signs Temperature: 97.9 F Blood Pressure: 101/53 Pulse: 100 Respirations: 20 Pulse Ox (%): 100 - Physical Exam General: Alert, In no apparent distress, Oriented x3 HEENT: Atraumatic, PERRLA, Mucous membr. moist/pink, EOMI, Sclerae nonicteric Neck: Supple, JVD not distended Respiratory: Clear to auscultation bilaterally, Diminished Cardiovascular: Normal pulses, Regular rate/rhythm, Normal S1 S2, No gallops, No rubs, No murmurs, Edema (trace bilateral) Gastrointestinal: Normal bowel sounds, Soft and benign, Non-distended, No tenderness, No rebound, No guarding Musculoskeletal: No clubbing Integumentary: No rashes Neurological: Normal speech, Cranial nerves 3-12 intact, Normal affect - Studies Microbiology Data (last 24 hrs): 04/01/22 00:25 Catheterized Urine [place] Count - Final No growth. 04/01/22 00:25 Catheterized Urine - Final No growth. Assessment And Plan - Plan # Concern for Acute Congestive Heart Failure with Preserved Ejection Fraction - Cardiology consulted - recommendations appreciated - NT-Pro BNP = 3302 - TTE = "NORMAL LEFT VENTRICULAR EJECTION FRACTION 55-60%. NORMAL WALL MOTION. SMALL TO MODERATE PERICARDIAL EFFUSION." - Reviewed images alongside Dr. Ray, who states that the pericardial effusion appears chronic with no evidence of tamponade physiology - Diuresis with IV furosemide for now - Strict I/O - Daily weight - Cardiac diet, 1.5 L, 2 g Na restriction # Moderately Large Bilateral Pleural Effusions with Lung Base Infiltrate and/or Atelectasis Superimposed on COPD - Pulmonary Medicine consulted - recommendations appreciated - May benefit from diagnostic and therapeutic thoracentesis # History of Hypertension - Was hypotensive overnight - Hold home losartan, metoprolol for now # Chronic Obstructive Pulmonary Disease - No evidence of COPD exacerbation - Continue home inhalers # Recent Hospitalization for Septic Shock with possible Acute Cholecystitis and Left Hip Avascular Necrosis - Denies any abdominal pain or hip pain - Monitor symptoms Eliceo Gillis M.D.
[2022-04-03] MEDS: IPRATROPIUM BROM 0.5MG/2.5ML NEB SCH ×4 (01:10→19:05)
[2022-04-03 06:34] LABS: Absolute Lymphocytes (CBC) 1.4 K/uL (0.7-4.9); Hematocrit 37.6 % (36.0-45.0); MCV 106.3 fL (80-100); MPV 7.8 fL (7.6-11.3); RBC Red Blood Cell Count 3.54 M/uL (3.86-4.86)
[2022-04-03 07:14] LABS: Bilirubin Total 0.7 mg/dL (0.2-1.0); Potassium 3.5 mmol/L (3.5-5.1); Protein, Total 4.2 g/dL (6.4-8.2)
[2022-04-03] MEDS ORDERED: POTASSIUM CL SA 10 MEQ TAB PO ONE (09:00)
[2022-04-03] MEDS ORDERED: METOPROLOL TAR 25 MG TAB PO SCH (09:23)
--- NOTE | 2022-04-03 11:35 | P.PN ---
Subjective Date of Service: 04/03/22 Chief Complaint: Dyspnea, new CHF No acute events overnight. This morning, she became tachycardic on telemetry, with what appeared to be supraventricular tachycardia to the 180s. She was slightly uncomfortable, but hemodynamically stable during this episode. I requested a STAT EKG, but she reverted back into sinus rhythm after 3 valsalva manuevers. Review of Systems 10-point ROS is otherwise unremarkable General: Weakness Cardiovascular: Palpitations Physical Examination - Vital Signs Temperature: 97.4 F Blood Pressure: 131/92 Pulse: 96 Respirations: 20 Pulse Ox (%): 99 - Studies Microbiology Data (last 24 hrs): 04/01/22 00:25 Catheterized Urine [place] Count - Final No growth. 04/01/22 00:25 Catheterized Urine - Final No growth. Assessment And Plan - Plan - Physical Exam General: Alert, In no apparent distress, Oriented x3 HEENT: Atraumatic, PERRLA, Mucous membr. moist/pink, EOMI, Sclerae nonicteric Neck: Supple, JVD not distended Respiratory: Clear to auscultation bilaterally, Diminished Cardiovascular: Tachycardic rate. Normal pulses, Regular rhythm, Normal S1 S2, No gallops, No rubs, No murmurs, Edema (trace bilateral) Gastrointestinal: Normal bowel sounds, Soft and benign, Non-distended, No tenderness, No rebound, No guarding Musculoskeletal: No clubbing Integumentary: No rashes Neurological: Normal speech, Cranial nerves 3-12 intact, Normal affect Assessment And Plan - Plan # Possible Supraventricular Tachycardia This morning, her heart rates jumped to the [id number]. Review of telemetry appeared to be supraventricular tachycardia. Stat EKG was requested, but prior to obtaining the EKG her symptoms resolved and she reverted to sinus rhythm after 3 Valsalva maneuvers. - Spoke with Dr. Ray, who recommended starting metoprolol tartrate 12.5 mg BID - Monitor telemetry # Concern for Acute Congestive Heart Failure with Preserved Ejection Fraction - Cardiology consulted - recommendations appreciated - NT-Pro BNP = 3302 - TTE = "normal left ventricular ejection fraction 55-60%. normal wall motion. small to moderate pericardial effusion." - Reviewed images alongside Dr. Ray, who states that the pericardial effusion appears chronic with no evidence of tamponade physiology - Diuresis with IV furosemide for now - Strict I/O - Daily weight - Cardiac diet, 1.5 L, 2 g Na restriction # Moderately Large Bilateral Pleural Effusions with Lung Base Infiltrate and/or Atelectasis Superimposed on COPD - Pulmonary Medicine consulted - recommendations appreciated - May benefit from diagnostic and therapeutic thoracentesis # History of Hypertension - Continue metoprolol as mentioned above - Hold home losartan for now # Chronic Obstructive Pulmonary Disease - No evidence of COPD exacerbation - Continue home inhalers # Recent Hospitalization for Septic Shock with possible Acute Cholecystitis and Left Hip Avascular Necrosis - Denies any abdominal pain or hip pain - Monitor symptoms Eliceo Gillis M.D. Physician Review: Patient Assessed, Agree with Above Assessment and Plan
--- NOTE | 2022-04-03 16:02 | P.CNS ---
Date of Consult: 04/03/22 Chief Complaint: Dyspnea, new CHF History of Present Illness: Patient is 66 years of age with a history of COPD alcohol abuse and recent hospitalization for acute cholecystitis who is a cholecystectomy also has avascular necrosis of the left hip history of fracture of the pubic ramus admitted here for septic shock/patient feels better poor historian feeling weak she has a history of COPD is not on any oxygen or bronchodilators at home Allergies No Known Allergies Allergy (Unverified 03/24/22 16:13) Home Medications: Losartan Potassium [Cozaar] 25 mg PO DAILY 03/26/22 Metoprolol Tartrate [Lopressor*] 25 mg PO BID 6AM 6PM #60 tab 03/29/22 Thiamine HCl [Vitamin B-1*] 100 mg PO DAILY 03/29/22 levoFLOXacin [Levaquin*] 500 mg PO DAILY 5 Days #5 tab 03/29/22 metroNIDAZOLE [Flagyl*] 500 mg PO TID 5 Days #15 tab 03/29/22 - Past Medical/Surgical History Diabetic: No -: hypertension -: Alcohol abuse -: COPD -: None Psychosocial/ Personal History: Patient lives at home alone with her pet dog - Family History Father Medical History: Heart disease - Social History Smoking Status: Former smoker Alcohol use: Yes CD- Drugs: No Caffeine use: Yes Place of Residence: Home Review of Systems General: Weakness Respiratory: Shortness of Breath Physical Examination Temp Pulse Resp BP Pulse Ox 98.0 F 97 H 23 H 121/80 98 04/03/22 12:00 04/03/22 12:00 04/03/22 12:00 04/03/22 12:00 04/03/22 12:00 General: Alert, In no apparent distress, Oriented x3 Respiratory: Clear to auscultation bilaterally, Diminished Cardiovascular: No edema, Regular rate/rhythm, Normal S1 S2 Gastrointestinal: Normal bowel sounds, Soft and benign - Problems (1) COPD (chronic obstructive pulmonary disease) Current Visit: Yes Status: Acute Plan: Patient is 66 years of age admitted with possible sepsis history of cholecystitis refused cholecystectomy and complaining of cough and shortness of breath history of alcoholism CT scan shows bilateral symmetrical effusion most likely heart failure there is no clinical evidence of sepsis White count is normal patient has a normal echocardiogram only underlying diastolic dysfunction vital signs stable evaluate room air oxygen probably need bronchodilators at home including diuretics room air sats are satisfactory patient refused surgical intervention for cholecystitis room air sat 92% Su's and spironolactone being benefit from an inhaled bronchodilator plan for discharge follow-up with me in 2-week also had an inhaled bronchodilator ambulate possible discharge
[2022-04-03] MEDS: METOPROLOL TAR 25 MG TAB PO SCH (18:05)
[2022-04-03] MEDS: DULERA 200/5 (MOMETASONE/FORMOTEROL) INHALER IH SCH (21:00)
[2022-04-03] MEDS: SPIRONOLACTONE 25 MG TABLET PO SCH (21:56)
[2022-04-04] MEDS: IPRATROPIUM BROM 0.5MG/2.5ML NEB SCH ×4 (01:00→20:00)
[2022-04-04] MEDS: METOPROLOL TAR 25 MG TAB PO SCH ×2 (05:40→17:52)
[2022-04-04 06:30] LABS: Bicarbonate 28 mmol/L (21-32); Glomerular Filtration Rate 122 ml/min (=/>90); Glucose Level 86 mg/dL (74-106); Potassium 3.6 mmol/L (3.5-5.1); Sodium Level 139 mmol/L (136-145)
--- NOTE | 2022-04-04 06:37 | PN ---
Ms. Meza was admitted on 04/01/2022 with hypotension, cough, hypokalemia, bilateral pleural effusion , COPD, elevated D-dimer with negative CT angiogram. Echocardiogram showed small pericardial effusio n that appears to be chronic without any evidence of tamponade. We do not think that her pericardial effusion is causing her hypotension. Today, her blood pressure was 130/74. She remains in sinus rh ythm. I think we need to continue correcting her potassium. Continue antibiotics, COPD treatment, g entle hydration. We will be available for questions if the need arises. Her echocardiogram did show normal ejection fraction and no wall motion abnormalities otherwise. HANK/MODL Voice ID: [id number] Report ID: [id number]
[2022-04-04 06:46] LABS: BUN Blood Urea Nitrogen < 3 mg/dL (7-18)
--- NOTE | 2022-04-04 07:13 | CON ---
Date of Consultation: 04/01/2022 Admitted on 04/01/[address] Gillis's service. Reason For Consultation: Hypotension and shortness of breath. History Of Present Illness: Ms. Meza is 66-year-old, has a history of hypertension only, and has be en taking antibiotics including Levaquin and Flagyl recently for, what sounds like, bronchitis. She also has a history of hypertension for which she takes losartan and metoprolol. When came in was sli ghtly hypotensive at 95/58. She had an elevated D-dimer. Her potassium was 3.0. CTA showed negativ e pulmonary embolus, COPD, small bilateral pleural effusion. Echocardiogram is pending. Past Medical History: Includes hypertension. Allergies: NONE. Medications: Listed earlier. Review of Systems: Negative. Social History: Negative. Family History: Noncontributory. Physical Examination: General: She was rather somnolent and fatigued, but appears her stated age. Vital Signs: Blood pressure was 95/58. She was in sinus rhythm. HEENT: Negative. Neck: Supple, no bruit. Chest: Clear. Cardiac: Revealed a regular rhythm and rate without any murmurs, gallops, or rubs. Abdomen: Benign. Extremities: Revealed no clubbing, cyanosis, or edema. Diagnostic Data: As stated earlier and her creatinine was 0.51. Impression And Plan: Hypotension, cough, shortness of breath, pleural effusion bilaterally, chronic obstructive pulmonary disease, may have some form of pneumonia and bronchitis, which was probably cau sing her hypotension. I think she needs to be on antibiotics. She needs to have her chronic obstruc tive pulmonary disease treated. Her potassium needs to be corrected. She needs to be hydrated well. We need to get an echocardiogram and see what that shows. For now, she is on Lovenox, losartan, an d inhalers. I would avoid the use of Lasix at this point. HANK/BEBE Voice ID: [id number] Report ID: [id number]
[2022-04-04] MEDS: DULERA 200/5 (MOMETASONE/FORMOTEROL) INHALER IH SCH ×2 (09:00→20:49)
[2022-04-04] MEDS ORDERED: POTASSIUM 25 MEQ EFFERV TAB PO ONE (09:00)
[2022-04-04] MEDS: SPIRONOLACTONE 25 MG TABLET PO SCH ×2 (09:38→20:48)
--- NOTE | 2022-04-04 10:04 | PN ---
Date of Progress Note: 04/03/2022 Ms. Meza had come in with hypotension, cough, and shortness of breath, bilateral pleural effusion, C OPD. Had a very small pericardial effusion, but did not contribute to her hypotension. She does not have any early tamponade or right ventricular collapse; however, yesterday she had an episode of sup raventricular tachycardia. I recommended low-dose beta-ian. Her SVT resolved with vagal maneuve rs. She can go home once it is okay with Dr. Gillis. We will see her eventually as an outpatient. HANK/BEBE Voice ID: [id number] Report ID: [id number]
[2022-04-04 11:51] LABS: C.diff Antigen/Toxin Ag neg : Tox neg (NEG : NEG)
[2022-04-04] MEDS ORDERED: TRAMADOL HCL 50 MG TAB PO ONE (14:17)
--- NOTE | 2022-04-04 15:03 | P.PN ---
Subjective Date of Service: 04/04/22 Chief Complaint: Dyspnea, new CHF No acute events overnight. This morning, she appears more comfortable. No evidence of recurrent SVT. Awaiting Pulm recs regarding pleural effusions. Review of Systems 10-point ROS is otherwise unremarkable Respiratory: Shortness of Breath Cardiovascular: Palpitations Physical Examination - Vital Signs Temperature: 98.3 F Blood Pressure: 130/83 Pulse: 89 Respirations: 18 Pulse Ox (%): 97 Assessment And Plan - Plan - Physical Exam General: Alert, In no apparent distress, Oriented x3 HEENT: Atraumatic, PERRLA, Mucous membr. moist/pink, EOMI, Sclerae nonicteric Neck: Supple, JVD not distended Respiratory: Clear to auscultation bilaterally, Diminished Cardiovascular: Tachycardic rate. Normal pulses, Regular rhythm, Normal S1 S2, No gallops, No rubs, No murmurs, Edema (trace bilateral) Gastrointestinal: Normal bowel sounds, Soft and benign, Non-distended, No tenderness, No rebound, No guarding Musculoskeletal: No clubbing Integumentary: No rashes Neurological: Normal speech, Cranial nerves 3-12 intact, Normal affect Assessment And Plan - Plan # Possible Supraventricular Tachycardia This morning, her heart rates jumped to the [id number]. Review of telemetry appeared to be supraventricular tachycardia. Stat EKG was requested, but prior to obtaining the EKG her symptoms resolved and she reverted to sinus rhythm after 3 Valsalva maneuvers. - Spoke with Dr. Ray, who recommended starting metoprolol tartrate 12.5 mg BID - Monitor telemetry # Concern for Acute Congestive Heart Failure with Preserved Ejection Fraction - Cardiology consulted - recommendations appreciated - NT-Pro BNP = 3302 - TTE = "normal left ventricular ejection fraction 55-60%. normal wall motion. small to moderate pericardial effusion." - Reviewed images alongside Dr. Ray, who states that the pericardial effusion appears chronic with no evidence of tamponade physiology - Diuresis with IV furosemide for now - Strict I/O - Daily weight - Cardiac diet, 1.5 L, 2 g Na restriction # Moderately Large Bilateral Pleural Effusions with Lung Base Infiltrate and/or Atelectasis Superimposed on COPD - Pulmonary Medicine consulted - recommendations appreciated - May benefit from diagnostic and therapeutic thoracentesis - Requested home oxygen evaluation # History of Hypertension - Continue metoprolol as mentioned above - Hold home losartan for now # Chronic Obstructive Pulmonary Disease - No evidence of COPD exacerbation - Continue home inhalers # Recent Hospitalization for Septic Shock with possible Acute Cholecystitis and Left Hip Avascular Necrosis - Denies any abdominal pain or hip pain - Monitor symptoms Eliceo Gillis M.D.
[2022-04-05] MEDS: IPRATROPIUM BROM 0.5MG/2.5ML NEB SCH ×4 (01:57→20:00)
[2022-04-05] MEDS: METOPROLOL TAR 25 MG TAB PO SCH ×2 (06:00→17:25)
--- NOTE | 2022-04-05 08:13 | EKG ---
Test Date: 2022-04-03 Test Time: 09:21:15 Rotary Slicing Machine Operator: MEASUREMENT RESULTS: Intervals: Rate: 106 IL: 126 QRSD: 66 QT: 346 QTc: 459 [place]: P: 42 IL: 126 QRS: -16 T: 2 INTERPRETIVE STATEMENTS: Sinus tachycardia with fusion complexes Low voltage QRS Cannot rule out Anterior infarct, age undetermined Abnormal ECG Compared to ECG 03/31/2022 21:50:27 Fusion complex(es) now present Sinus rhythm no longer present Myocardial infarct finding still present Electronically Signed On 04-05-22 08:07:00 CDT by Espinoza Ray
[2022-04-05] MEDS: DULERA 200/5 (MOMETASONE/FORMOTEROL) INHALER IH SCH ×2 (09:00→21:00)
[2022-04-05] MEDS: SPIRONOLACTONE 25 MG TABLET PO SCH ×2 (09:11→21:49)
--- NOTE | 2022-04-05 14:20 | EKG ---
Test Date: 2022-03-31 Test Time: 21:50:27 Director Career: MARLENA MEASUREMENT RESULTS: Intervals: Rate: 84 GA: 162 QRSD: 58 QT: 376 QTc: 444 [place]: P: 41 GA: 162 QRS: 68 T: 35 INTERPRETIVE STATEMENTS: Normal sinus rhythm Low voltage QRS Cannot rule out Anteroseptal infarct, age undetermined Abnormal ECG Compared to ECG 03/24/2022 11:36:38 Sinus tachycardia no longer present Myocardial infarct finding still present Electronically Signed On 04-05-22 14:19:40 CDT by Naldo Rice
[2022-04-05] MEDS ORDERED: HYDROCODONE/APAP 10/325 TAB PO PRN (16:59)
[2022-04-05] MEDS ORDERED: dexAMETHasone 4 MG/ML VIAL IV ONE (18:00)
[2022-04-06] MEDS: IPRATROPIUM BROM 0.5MG/2.5ML NEB SCH ×4 (02:00→20:00)
[2022-04-06] MEDS ORDERED: DIAZEPAM 5 MG TABLET PO ONE (05:04)
[2022-04-06] MEDS: METOPROLOL TAR 25 MG TAB PO SCH ×2 (05:14→17:30)
[2022-04-06] MEDS: dexAMETHasone 4 MG/ML VIAL IV SCH ×2 (05:15→12:39)
[2022-04-06] MEDS: DULERA 200/5 (MOMETASONE/FORMOTEROL) INHALER IH SCH ×2 (09:00→21:00)
[2022-04-06] MEDS: SPIRONOLACTONE 25 MG TABLET PO SCH ×2 (09:42→21:17)
--- NOTE | 2022-04-06 11:35 | RAD REPORT ---
EXAM DESCRIPTION: MRI - Brain Wo Cont - 04/06/2022 11:13 am CLINICAL HISTORY: Dementia COMPARISON: Chest Abdomen Pelvis W Cont dated 03/25/2022; Head Brain Wo Cont dated 03/28/2022 TECHNIQUE: Sagittal T1-weighted images were obtained along with PD/heavily T2-weighted and T2-FLAIR images. Axial DWI and ADC mapping sequences were also obtained along with coronal heavily T2-weighted images were obtained. FINDINGS: No intracranial hemorrhage, mass or acute infarction. There is no edema or shift of midlin e structures. No extra-axial fluid collections. Signal voids are seen as a normal finding in the cinthia r intracranial vessels. Moderate chronic small vessel ischemic changes. Age advanced cerebral atrophy . This seems to involve the frontal and temporal lobes to a greater extent. Ex vacuo dilatation of th e ventricles which is proportional to the degree Mastoid air cells and paranasal sinuses are clear. IMPRESSION: No acute intracranial abnormality. Significantly age advanced cerebral atrophy with back ground of moderate chronic small vessel ischemic changes .
--- NOTE | 2022-04-06 12:06 | P.PN ---
Subjective Date of Service: 04/06/22 Chief Complaint: COPD exacerbation Subjective: Improving (Patient is doing well and wants to go home no new complaints) Patient wants to go home improving and episodeSVT seen by cardiology Review of Systems General: Weakness Respiratory: Shortness of Breath Physical Examination - Vital Signs Temperature: 97.1 F Blood Pressure: 116/72 Pulse: 81 Respirations: 17 Pulse Ox (%): 95 - Physical Exam General: Alert, Oriented x3 Respiratory: Clear to auscultation bilaterally, Diminished Cardiovascular: No edema, Regular rate/rhythm - Studies Microbiology Data (last 24 hrs): 03/31/22 22:48 Blood - Blood Aerobic Blood Culture - Final No growth in 5 days. 03/31/22 22:48 Blood - Blood Anaerobic Blood Culture - Final No growth in 5 days. 03/31/22 22:18 Blood - Blood Aerobic Blood Culture - Final No growth in 5 days. 03/31/22 22:18 Blood - Blood Anaerobic Blood Culture - Final No growth in 5 days. Assessment And Plan - Current Problems (Diagnosis) (1) COPD (chronic obstructive pulmonary disease) Current Visit: Yes Status: Acute Plan: Patient is doing well no new complaints denies abdominal pain vital signs are stable oxygenation satisfactory chemistries reviewed has a macrocytosis I presume secondary to alcohol intake stable to be discharged on bronchodilators does not qualify for home O2 follow-up with me in 2-week Qualifiers: Emphysema type: unspecified Physician Review: Patient Assessed, Agree with Above Assessment and Plan
--- NOTE | 2022-04-06 23:56 | P.PN ---
Subjective Date of Service: 04/05/22 Subjective: No new changes, No C/O voiced, Improving Review of Systems 10-point ROS is otherwise unremarkable Physical Examination - Vital Signs Temperature: 97.3 F Blood Pressure: 111/62 Pulse: 96 Respirations: 18 Pulse Ox (%): 97 - Physical Exam General: Alert, In no apparent distress HEENT: Atraumatic, PERRLA, EOMI Neck: Supple, JVD not distended Respiratory: Clear to auscultation bilaterally, Normal air movement Cardiovascular: Regular rate/rhythm, Normal S1 S2 Gastrointestinal: Normal bowel sounds, No tenderness Musculoskeletal: No tenderness Integumentary: No rashes Neurological: Normal speech, Normal tone, Normal affect Lymphatics: No axilla or inguinal lymphadenopathy - Studies Microbiology Data (last 24 hrs): 03/31/22 22:48 Blood - Blood Aerobic Blood Culture - Final No growth in 5 days. 03/31/22 22:48 Blood - Blood Anaerobic Blood Culture - Final No growth in 5 days. 03/31/22 22:18 Blood - Blood Aerobic Blood Culture - Final No growth in 5 days. 03/31/22 22:18 Blood - Blood Anaerobic Blood Culture - Final No growth in 5 days. Medications List Reviewed: Yes Assessment & Plan - Problems (Diagnosis) (1) Pelvic fracture Current Visit: Yes Status: Acute (2) COPD (chronic obstructive pulmonary disease) Current Visit: Yes Status: Acute Qualifiers: Emphysema type: unspecified (3) Hip pain Current Visit: No Status: Acute (4) Korsakoff's psychosis, alcohol related Current Visit: No Status: Acute (5) Wernicke encephalopathy Current Visit: No Status: Acute - Plan 1. Continue with physical therapy 2. Out of bed and ambulate 3. Continue with nebs as tolerated 4. Tapering dose of steroids 5. Gi and DVT prophylaxis Anticipate discharge back to [facility] over the next 48 hours Discharge Plan: Home Plan to discharge in: Greater than 2 days - Advance Directives Does patient have a Living Will: No Does patient have a Durable POA for Healthcare: No - Code Status/Comfort Care Code Status Assessed: Yes Code Status: Full Code Physician Review: Patient Assessed, Agree with Above Assessment and Plan Critical Care: No Time Spent Managing PTS Care (In Minutes): 35
--- NOTE | 2022-04-07 00:17 | P.PN ---
Date of Service: 04/06/22 Subjective Subjective: No new changes, No C/O voiced, Improving Review of Systems 10-point ROS is otherwise unremarkable Physical Examination - Vital Signs reviewed - Physical Exam General: Alert, In no apparent distress Respiratory: Clear to auscultation bilaterally, Normal air movement Cardiovascular: Regular rate/rhythm, Normal S1 S2 Gastrointestinal: Normal bowel sounds, No tenderness Neurological: Normal speech, Normal tone, Normal affect Assessment & Plan - Problems (Diagnosis) (1) Pelvic fracture Current Visit: Yes Status: Acute (2) COPD (chronic obstructive pulmonary disease) Current Visit: Yes Status: Acute Qualifiers: Emphysema type: unspecified (3) Hip pain Current Visit: No Status: Acute (4) Korsakoff's psychosis, alcohol related Current Visit: No Status: Acute (5) Wernicke encephalopathy Current Visit: No Status: Acute - Plan Continues to do well. POC as mentioned below 1. Continue with physical therapy 2. Out of bed and ambulate 3. Continue with nebs as tolerated 4. Tapering dose of steroids 5. Gi and DVT prophylaxis Anticipate discharge back to [facility] over the next 24 hours Discharge Plan: Home Plan to discharge in: Greater than 2 days - Advance Directives Does patient have a Living Will: No Does patient have a Durable POA for Healthcare: No - Code Status/Comfort Care Code Status Assessed: Yes Code Status: Full Code Physician Review: Patient Assessed, Agree with Above Assessment and Plan Critical Care: No Time Spent Managing PTS Care (In Minutes): 35
[2022-04-07] MEDS: IPRATROPIUM BROM 0.5MG/2.5ML NEB SCH ×3 (01:25→14:00)
[2022-04-07] MEDS: METOPROLOL TAR 25 MG TAB PO SCH (06:20)
[2022-04-07] MEDS: DULERA 200/5 (MOMETASONE/FORMOTEROL) INHALER IH SCH (08:15)
[2022-04-07] MEDS: SPIRONOLACTONE 25 MG TABLET PO SCH (08:15)
[2022-04-07 09:06] VITALS: O2SAT 94
[2022-04-07 14:03] VITALS: BP 111/76; TEMP 97.2
--- NOTE | 2022-04-07 14:14 | P.DS ---
Discharge Date: 04/07/22 Disposition: TRANSFER TO [facility] Discharge Condition: GOOD Reason for Admission: COPD exacerbation - Problems (1) Pelvic fracture Current Visit: Yes Status: Acute (2) COPD (chronic obstructive pulmonary disease) Current Visit: Yes Status: Acute Qualifiers: Emphysema type: unspecified (3) Hip pain Current Visit: No Status: Acute (4) Korsakoff's psychosis, alcohol related Current Visit: No Status: Acute (5) Wernicke encephalopathy Current Visit: No Status: Acute Brief History of Present Illness: 66-year-old female with history of COPD, alcohol use disorder, avascular necrosis of the left hip who was recently admitted to the hospital for septic shock secondary to acute cholecystitis, during her hospitalization she was evaluated by general surgery and refused a cholecystectomy she had an MRCP during her recent hospitalization which revealed cholelithiasis with both intra and extrahepatic biliary ductal dilatation but no evidence of choledocholithiasis stricture or mass, she was also evaluated by orthopedic surgery for her severe avascular necrosis of her left hip and concern for left superior pubic ramus fracture both were deemed nonoperative by orthopedics she declined surgical intervention was placed on antibiotics and was discharged home on 03/29/2022. Patient reports since she has been at home she has had cough and shortness of breath. She was evaluated here again in the emergency department her labs were significant for white blood cell count of 7.3 potassium 3.1 BNP 3302 high-sensitivity troponin 14.7 she had a chest x-ray which revealed moderately large bilateral pleural effusions, heart size upper normal limit, lung base infiltrate and/or atelectasis superimposed on prominent COPD. Patient without any fever, chills, leukocytosis doubt infectious process at this time patient with 2-3+ pitting edema of her lower extremities suspect new onset CHF. Patient was given 40 mg of IV Lasix in the emergency department ED provider wishes to admit for further evaluation and management. Given recent hospitalization, dyspnea, signs of heart failure a D-dimer was added on to rule out pulmonary embolism which is currently pending. Vital Signs/Physical Exam: Temp Pulse Resp BP Pulse Ox 97.2 F 85 22 H 111/76 96 04/07/22 12:00 04/07/22 12:00 04/07/22 12:00 04/07/22 12:00 04/07/22 12:00 Laboratory Data at Discharge: WBC 5.00 K/uL (4.3-10.9) D 04/03/22 06:15 Hgb 12.8 g/dL (12.0-15.0) 04/03/22 06:15 Hct 37.6 % (36.0-45.0) 04/03/22 06:15 Plt Count 179 K/uL (152-406) D 04/03/22 06:15 PT 13.5 SECONDS (9.5-12.5) H 03/31/22 22:18 INR 1.22 03/31/22 22:18 APTT 33.9 SECONDS (24.3-36.9) 03/31/22 22:18 Sodium 140 mmol/L (136-145) 04/07/22 04:59 Potassium 4.0 mmol/L (3.5-5.1) 04/07/22 04:59 BUN 8 mg/dL (7-18) 04/07/22 04:59 Creatinine 0.41 mg/dL (0.55-1.3) L 04/07/22 04:59 Glucose 134 mg/dL (74-106) H 04/07/22 04:59 Magnesium 2.0 mg/dL (1.8-2.4) 04/05/22 03:20 Total Bilirubin 0.7 mg/dL (0.2-1.0) 04/03/22 06:15 AST 29 U/L (15-37) 04/03/22 06:15 ALT 22 U/L (12-78) 04/03/22 06:15 Alkaline Phosphatase 166 U/L (45-117) H 04/03/22 06:15 Triglycerides 65 mg/dL (<150) 04/01/22 05:14 Cholesterol 105 mg/dL (<200) 04/01/22 05:14 HDL Cholesterol 55 mg/dL (40-60) 04/01/22 05:14 Cholesterol/HDL Ratio 1.91 04/01/22 05:14 Home Medications: Thiamine HCl [Vitamin B-1*] 100 mg PO DAILY 03/29/22 levoFLOXacin [Levaquin*] 500 mg PO DAILY 5 Days #5 tab 03/29/22 metroNIDAZOLE [Flagyl*] 500 mg PO TID 5 Days #15 tab 03/29/22 Albuterol Neb [Proventil 0.083% Neb Soln] 2.5 mg NEB [id number] PRN #30 amp 04/07/22 Hydrocodone 10/APAP 325 [[place] 10/325*] 1 tab PO Q6H PRN #30 tab 04/07/22 Ipratropium Neb [Atrovent*] 0.5 mg NEB [id number] #30 amp 04/07/22 Metoprolol Tartrate [Lopressor*] 25 mg PO BID 6AM 6PM #60 tab 04/07/22 Spironolactone [Aldactone*] 25 mg PO BID #60 tab 04/07/22 New Medications: Spironolactone [Aldactone*] 25 mg PO BID #60 tab Ipratropium Neb [Atrovent*] 0.5 mg NEB [id number] #30 amp Metoprolol Tartrate [Lopressor*] 25 mg PO BID 6AM 6PM #60 tab Hydrocodone 10/APAP 325 [[place] 10/325*] 1 tab PO Q6H PRN #30 tab PRN Reason: Pain Scale 5-7 (Moderate) Albuterol Neb [Proventil 0.083% Neb Soln] 2.5 mg NEB [id number] PRN #30 amp PRN Reason: Shortness Of Breath Physician Discharge Instructions: OK TO DC IV AND DC BACK TO [facility] FOLLOW-UP WITH PRIMARY CARE PROVIDER IN 1-2 WEEKS FOLLOW-UP WITH Pulmonary, Neurology, and CARDIOLOGY IN 1-2 WEEKS RETURN TO THE ER IF symptoms worsen CALL DR. BLAIR AT [phone] IF ANY QUESTIONS REGARDING HOSPITAL STAY. PLEASE CALL THE FLOOR AT [phone] IF ANY MEDICATION OR NURSING QUESTIONS. Diet: AHA Activity: Fall precautions Followup: [facility] [Provider Group] Judah Tom MD [ACTIVE - CAN ADMIT] - Luis Granger MD [ASSOCIATE-ACTIVE - CAN ADMIT] -
== END 2022-04-07 16:01 | disposition home health service (06) | DRG 291 ==
LOC: ER 21:39 → ERHOLD 04-01 01:07 → 2ND 04-01 14:15 → 4TH 04-05 14:00
PROVIDERS: ADMIT Internal Medicine; ATTEND Hospitalist
DX: I11.0 Hypertensive heart disease with heart failure (principal); I50.31 Acute diastolic (congestive) heart failure; I47.1 Supraventricular tachycardia; E51.2 Wernicke's encephalopathy; F10.959 Alcohol use, unspecified with alcohol-induced psychotic disorder, unspecified; E87.6 Hypokalemia; J43.9 Emphysema, unspecified; I95.9 Hypotension, unspecified; R09.02 Hypoxemia; Z60.2 Problems related to living alone; Z87.891 Personal history of nicotine dependence; Z79.899 Other long term (current) drug therapy; Z20.822 Contact with and (suspected) exposure to COVID-19
CPT/HCPCS: 36415; 70551; 71045; 71275; 80048; 80053; 80061; 81003; 81015; 82947; 83605; 83735; 83880; 84132; 84439; 84443; 84484; 85025; 85379; 85610; 85730; 87040; 87086; 87088; 87324; 87804; 93005; 93306; 99285; J0456; J1100; J1650; J1940; J2270; J3475; J3535; J7040; J7050; Q9967; U0003